=== PATIENT | female | born 1980 | race Caucasian/White ===

== ENCOUNTER → 2017-06-19 16:52 | Outpatient (CLI) | payer OTHER, SELFPAY ==
--- NOTE | 2017-06-19 11:30 | COLBX_PTH ---
PATIENT: EVELYN ATKINSON [facility] U#:[id number] AGE/SX: 44/F ROOM: RE06/19/[address]: Dr. Andrew Sosa MD : 1980 BED: DIS: SPEC #: [id number] RECD: 06/19/17 16:15 STATUS: JOON REJI #: [id number] SHAKIRA: 06/19/17 11:[address]: Andrew Sosa DEPT: SURGICAL PATHOLOGY RECD BY: [place] ENTERED: 06/20/17 08:15 SP TYPE: COLON BX OTHR DR: Dr. Manohar Mcrae MD [facility] Tissues: COLON BIOPSY Procedures: Surgery Specimen Level IV HEADER OPERATION: Colonoscopy with biopsy PRE-OP DIAGNOSIS: Abdomen pain TISSUE SUBMITTED: Right and left colon biopsy, rule out microscopic colitis MICROSCOPIC DIAGNOSIS Right and left colon, biopsy: No significant pathologic change. No evidence of colitis. AM:kamilla 06/21/17 MICROSCOPIC DESCRIPTION Slides are reviewed. GROSS DESCRIPTION Received in fixative is one container labeled with the patient's name and designated right and left colon. The specimen consists of multiple irregular fragments of light orosco soft tissue that in aggregate measure 2 x 0.6 x 0.1 cm. The specimen is totally submitted in one cassette. / AM:kamilla 06/20/17 TC:5 CPT: 09970
== END ==
PROVIDERS: Family Provider Family Medicine; PCP Family Medicine; Visit Provider Internal Medicine Gastroenterology
DX: R10.9 Unspecified abdominal pain (principal)
CPT/HCPCS: 88305

== ENCOUNTER → 2017-08-25 12:41 | Outpatient (CLI) | payer OTHER, SELFPAY ==
[2017-08-25 14:53] LABS: Anion Gap 9 (5-15); BUN 12 mg/dL (7-18); BUN/Creat Ratio 17.9 RATIO (10-20); Calcium,Total 8.9 mg/dL (8.5-10.1); Chloride 105 mmol/L (98-107); Creatinine, Serum 0.67 mg/dL (0.55-1.02); EST Glomerular Filtration Rate 105 mL/min (>60); Est Glom Filt Rate - Afr Amer 127 mL/min (>60); Glucose 61 mg/dL (74-106); Potassium 3.8 mmol/L (3.5-5.1); Sodium Level 142 mmol/L (136-145)
== END ==
PROVIDERS: Family Provider Family Medicine; PCP Family Medicine; Visit Provider Nurse Practitioner Family
DX: R00.2 Palpitations (principal); I10 Essential (primary) hypertension; R00.0 Tachycardia, unspecified
CPT/HCPCS: 36415; 80048

== ENCOUNTER → 2017-09-11 10:21 | Outpatient (CLI) | payer OTHER, SELFPAY ==
[2017-09-15 12:07] LABS: Metanephrine, Ur 33 ug/L (Undefined); Normetanephrines, Ur 72 ug/L (Undefined)
[2017-09-15 13:22] LABS: Metanephrines, 24Ur 116 ug/24 hr (45-290); Normetanephrines, 24Ur 252 ug/24 hr (82-500)
== END ==
PROVIDERS: Family Provider Family Medicine; PCP Family Medicine; Visit Provider Family Medicine
DX: R00.0 Tachycardia, unspecified (principal)
CPT/HCPCS: 81050; 83835

== ENCOUNTER → 2017-09-11 15:54 | Outpatient (CLI) | payer OTHER, SELFPAY | PROVIDERS: Visit Provider Obstetrics & Gynecology | DX: N39.0 Urinary tract infection, site not specified (principal) | CPT/HCPCS: 87086; 87088 ==

== ENCOUNTER 2017-10-03 16:33 | Emergency (ER) | payer OTHER, SELFPAY ==
[2017-10-03 16:34] VITALS: BP 124/86; PULSE 71; RESP 18; TEMP 36.9; O2SAT 98; BMI 36.4
--- NOTE | 2017-10-03 16:56 | RAD_ITS ---
STUDY: X-RAY CHEST REASON FOR EXAM: Female, 37 years old. Chest pain. TECHNIQUE: Single AP portable view of the chest. COMPARISON: February 06, 2017. FINDINGS: Telemetry wires overlie the chest. The lungs are clear and expanded. There is no demonstrated pleural abnormality. Normal size heart. Normal mediastinum and marsha. Normal visualized pulmonary arteries. Normal visualized aortic arch and descending thoracic aorta. Normal visualized thoracic spine. Normal visualized ribs, clavicles, and shoulders. There is no demonstrated abnormality of the visualized soft tissue structures of the upper abdomen. RAD/Chest 1 View (Portable) IMPRESSION: Normal x-ray examination of the chest. There is no interval change. Electronically Signed: Nacho Crowe DO at 17:39 EDT Tel [phone], Service support ,
--- NOTE | 2017-10-03 16:56 | EKG12_ITS ---
Test Reason : CP Blood Pressure : / mmHG Vent. Rate : 063 BPM Atrial Rate : 063 BPM P-R Int : 158 ms QRS Dur : 074 ms QT Int : 392 ms P-R-T Axes : 000 143 136 degrees QTc Int : 401 ms Suspect arm lead reversal, interpretation assumes no reversal Normal sinus rhythm Lateral infarct , age undetermined Abnormal ECG Confirmed by ELMER HOOPER ([id number]), graphics editor RENAN AUGUSTIN ([id number]) on 10/16/2017 5:52:50 PM Referred By: VIVIANA/CAYETANO Confirmed By:ELMER HOOPER
[2017-10-03 17:07] LABS: Absolute Neutrophil Count 3.9 X10^3/uL (2.0-7.7); Basophil# 0.01 X10^3/uL; Basophil% 0.2 % (0-1); Eosinophil# 0.08 X10^3/uL; Eosinophils% 1.3 % (0-5); Hematocrit 39.2 % (37-47); Hemoglobin 13.1 g/dl (12.0-15.0); Lymphocyte % 29.7 % (19-41); Mean Corp Hgb Conc 33.4 g/gl (32-36); Mean Corpuscular Hgb 28.7 pg (27.0-32.0); Monocyte# 0.51 X10^3/uL; Neutrophil # 3.88 X10^3/uL (2.7-7.7); Neutrophil % 60.6 % (47-70); POSITIVE COUNT NO; POSITIVE DIFFERENTIAL NO; POSITIVE MORPHOLOGY NO; Platelet Count 380 K/mm3 (150-450); RBC Distribution Width CV 12.4 % (11.6-14.6); RBC Distribution Width SD 39.5 fl (35.1-43.9); Red Blood Count 4.56 M/mm3 (4.2-5.4); White Blood Count 6.4 K/mm3 (4.4-11.0)
[2017-10-03 17:20] VITALS: O2SAT 98
[2017-10-03 17:24] LABS: Anion Gap 7 (5-15); BUN 16 mg/dL (7-18); BUN/Creat Ratio 23.9 RATIO (10-20); Calcium,Total 9.4 mg/dL (8.5-10.1); Chloride 106 mmol/L (98-107); Creatinine, Serum 0.67 mg/dL (0.55-1.02); EST Glomerular Filtration Rate 105 mL/min (>60); Est Glom Filt Rate - Afr Amer 127 mL/min (>60); Estimated Creatinine Clearance 103.45 ml/min; Glucose 91 mg/dL (74-106); Sodium Level 140 mmol/L (136-145)
--- NOTE | 2017-10-03 18:04 | EKG12_ITS ---
Test Reason : REPEAT Blood Pressure : / mmHG Vent. Rate : 057 BPM Atrial Rate : 057 BPM P-R Int : 170 ms QRS Dur : 080 ms QT Int : 426 ms P-R-T Axes : 041 043 053 degrees QTc Int : 414 ms Sinus bradycardia Otherwise normal ECG Confirmed by ELMER HOOPER ([id number]), supervising editor news reel RENAN AUGUSTIN ([id number]) on 10/16/2017 5:53:24 PM Referred By: CAYETANO Confirmed By:ELMER HOOPER
[2017-10-03 18:44] VITALS: BP 130/78; PULSE 53; RESP 16; O2SAT 98
--- NOTE | 2017-10-03 19:05 | ED.VISSUMM ---
- ER Visit Summary Date of Service: 10/03/17 Chief Complaint: Chest pain History of Present Illness: The patient is a [address] Arizmendi, Dr. Nash Mcrae, and Dr. Potter. She reports that she has a history of pots. States that approximately 1 month ago she began having more frequent symptoms. She was seen in outlying ER and had an unremarkable workup. She was seen by Dr. Arizmendi and instructed to start taking her propranolol again. She reports that she did this for 2 weeks and was not having any symptoms anymore so she stopped taking it. Worse over the course the past 4 days she is having 1-2 episodes a day where she has chest pain, shortness of breath, and feels very lightheaded. She states that these are usually while she is sitting still. They are not related to exertion. They do not seem to be postural. States that the pain is a sharp pain in 7-10 at worst and 2 out of 10 currently. States that this comes on lasts minutes at a time. Physical Examination: Vitals: Stable. Afebrile. General: Well-nourished and well-developed. Head: Normocephalic atraumatic. Neck: Supple, no lymphadenopathy. No JVD. Nontender. Cardiovascular: Regular rate and rhythm. No murmurs. Respiratory: No respiratory distress. Clear to auscultation bilaterally. Abdominal: Soft, nontender, nondistended, normal bowel sounds. No guarding, rebound, or peritoneal signs. Back: Nontender. Extremities: Nontender, no edema. Skin: Normal color, no rash. Neurologic: Alert and oriented ?3. Cranial nerves II through XII are intact. Normal strength and sensation. Psych: Normal affect. Test Results: EKG is sinus at 63. Initial EKG shows T-wave inversions in leads I and aVL at the list suspect limb lead reversal. This was repeated and these are normal and her EKG is unchanged from February last year. Troponins negative. Chem-7 is normal. CBC is normal. Chest x-ray is normal. Emergency Department Course and Treatment: Patient's resting comfortably without complaint. Treatment Plan: Patient was discussed with Dr. Manning. She is instructed to restart her propranolol. Call Dr. Arizmendi and find out if she is supposed to have an event or a Holter monitor and further instructions on follow-up. Return to the emergency department for any worsening symptoms. Disposition: To home in improved and stable condition. Impression: 1. Atypical chest pain. 2. MEAGAN score of 0. 3. History of POTS. This note was generated with [employer] dictation software. It may contain incorrect words, spelling, and punctuation that were not noted in review of the chart prior to signing ED Disposition - Plan for ED Patient: Disposition: Home or Assisted Living Chief Complaint: Shortness of Breath Instructions: ED Chest Pain Atypical Unkn Cause Referrals: Carroll Arizmendi MD [STAFF PHYSICIAN] - As soon as possible Additional Instructions: speak with Dr. Arizmendi's office about the type of monitor (event vs holter). In the meantime begin taking your propranolol again.
[2017-10-03 19:10] VITALS: O2SAT 96
[2017-10-03 19:27] VITALS: BP 129/80; PULSE 64; RESP 13; O2SAT 97
== END 2017-10-03 19:28 | disposition home or self-care (01) ==
LOC: ED 18:23
PROVIDERS: Emergency Provider Emergency Medicine; Family Provider Family Medicine; PCP Family Medicine
DX: R07.89 Other chest pain (principal); Z86.79 Personal history of other diseases of the circulatory system; R06.00 Dyspnea, unspecified; R11.0 Nausea; R51 Headache; R42 Dizziness and giddiness; Z91.14 Patient's other noncompliance with medication regimen
CPT/HCPCS: 71045; 80048; 84484; 85025; 93005; 99284; A4216

== ENCOUNTER → 2017-10-04 17:56 | Outpatient (CLI) | payer OTHER, SELFPAY ==
--- NOTE | 2017-10-04 17:59 | US_ITS ---
STUDY: ULTRASOUND TRANSVAGINAL CLINICAL: Female, 37 years old. Dysmenorrhea and dyspareunia TECHNIQUE: Transvaginal and transabdominal COMPARISON: April 21, 2017 FINDINGS: Normal uterine size measuring 8.7 x 6.8 x 5.1 cm in maximal craniocaudal dimension. There are 3 fibroids measuring 4.6 x 3.8 x 3.4 cm, 1.7 x 1.1 x 1.1 cm and 1 x 0.9 x 0.6 cm. Normal endometrial thickness measuring 8 mm. There are no endometrial masses, and there is no fluid in the endometrial cavity. Normal uterine cervix. Normal right ovary, measuring 4.4 x 2.6 x 1.6 cm. There are multiple follicles without a dominant cyst measuring 1.6 x 1 x 0.9 cm Normal left ovary, measuring 4.2 x 2 x 1.9 cm. There are multiple follicles without a dominant cyst. There is no free fluid in the pelvis. Right ovarian cyst has decreased in size since prior exam US/Pelvic (Non ) IMPRESSION: Multiple intrauterine fibroids. Small right ovarian cyst which has decreased in size since prior study Electronically Signed: Cosmo Haro MD at 23:24 EDT , Service support ,
--- NOTE | 2017-10-04 18:23 | US_ITS ---
STUDY: ULTRASOUND TRANSVAGINAL CLINICAL: Female, 37 years old. Dysmenorrhea and dyspareunia TECHNIQUE: Transvaginal and transabdominal COMPARISON: April 21, 2017 FINDINGS: Normal uterine size measuring 8.7 x 6.8 x 5.1 cm in maximal craniocaudal dimension. There are 3 fibroids measuring 4.6 x 3.8 x 3.4 cm, 1.7 x 1.1 x 1.1 cm and 1 x 0.9 x 0.6 cm. Normal endometrial thickness measuring 8 mm. There are no endometrial masses, and there is no fluid in the endometrial cavity. Normal uterine cervix. Normal right ovary, measuring 4.4 x 2.6 x 1.6 cm. There are multiple follicles without a dominant cyst measuring 1.6 x 1 x 0.9 cm Normal left ovary, measuring 4.2 x 2 x 1.9 cm. There are multiple follicles without a dominant cyst. There is no free fluid in the pelvis. Right ovarian cyst has decreased in size since prior exam US/Transvaginal Non- IMPRESSION: Multiple intrauterine fibroids. Small right ovarian cyst which has decreased in size since prior study Electronically Signed: Cosmo Haro MD at 23:24 EDT , Service support ,
== END ==
PROVIDERS: Family Provider Family Medicine; PCP Family Medicine; Visit Provider Obstetrics & Gynecology
DX: N94.6 Dysmenorrhea, unspecified (principal)
CPT/HCPCS: 76830; 76856; 93976

== ENCOUNTER → 2017-10-05 13:55 | Outpatient (CLI) | payer OTHER, SELFPAY | PROVIDERS: Family Provider Family Medicine; PCP Family Medicine; Visit Provider Internal Medicine Cardiovascular Disease | DX: R00.2 Palpitations (principal); R00.0 Tachycardia, unspecified; R06.02 Shortness of breath; I10 Essential (primary) hypertension | CPT/HCPCS: 93225; 93226 ==

== ENCOUNTER → 2017-10-05 14:18 | Outpatient (CLI) | payer OTHER, SELFPAY ==
[2017-10-05 14:57] LABS: Absolute Lymphocyte Count 1.87 X10^3/ul (0.83-4.51); Absolute Neutrophil Count 3.5 X10^3/uL (2.0-7.7); Basophil# 0.02 X10^3/uL; Basophil% 0.3 % (0-1); Eosinophil# 0.17 X10^3/uL; Eosinophils% 2.7 % (0-5); Hematocrit 39.1 % (37-47); Hemoglobin 13.1 g/dl (12.0-15.0); Lymphocyte # 1.87 X10^3/ul (4.0); Mean Corp Hgb Conc 33.5 g/gl (32-36); Mean Corpuscular Hgb 28.9 pg (27.0-32.0); Mean Corpuscular Volume 86.3 fL (81-99); Mean Platelet Vol. 9.3 fl (6.2-12.0); Monocyte# 0.64 X10^3/uL; Monocyte% 10.3 % (0-10); Neutrophil # 3.52 X10^3/uL (2.7-7.7); Neutrophil % 56.5 % (47-70); Platelet Count 400 K/mm3 (150-450); RBC Distribution Width CV 12.3 % (11.6-14.6); Red Blood Count 4.53 M/mm3 (4.2-5.4); White Blood Count 6.2 K/mm3 (4.4-11.0)
[2017-10-05 15:01] LABS: POSITIVE COUNT NO; POSITIVE DIFFERENTIAL NO; POSITIVE MORPHOLOGY NO
[2017-10-05 15:33] LABS: Anion Gap 8 (5-15); BUN 18 mg/dL (7-18); BUN/Creat Ratio 17.5 RATIO (10-20); Calcium,Total 9.2 mg/dL (8.5-10.1); Chloride 105 mmol/L (98-107); Creatinine, Serum 1.03 mg/dL (0.55-1.02); EST Glomerular Filtration Rate 64 mL/min (>60); Est Glom Filt Rate - Afr Amer 78 mL/min (>60); Glucose 78 mg/dL (74-106); Magnesium 2.1 mg/dL (1.6-2.6); Sodium Level 141 mmol/L (136-145); T4 Free Direct 1.12 ng/dL (0.76-1.46)
== END ==
PROVIDERS: Physician Assistant Medical; Family Provider Family Medicine; PCP Family Medicine; Visit Provider Internal Medicine Cardiovascular Disease
DX: R00.2 Palpitations (principal); I10 Essential (primary) hypertension; R06.02 Shortness of breath
CPT/HCPCS: 36415; 80048; 83735; 84439; 84443; 85025

== ENCOUNTER 2017-11-02 08:07 | Emergency (ER) | payer OTHER, SELFPAY ==
[2017-11-02 08:09] VITALS: BP 139/86; PULSE 87; RESP 16; TEMP 36.4; O2SAT 100; BMI 34.9
[2017-11-02 08:51] LABS: Bacteria 0 SEEN /hpf (None Seen); Mucous, Urine 0 SEEN /hpf (<or=2+); Red Blood Cells-Urine 0 SEEN /hpf (0-5); White Blood Cells 0 SEEN /hpf (0-5)
--- NOTE | 2017-11-02 08:53 | ED.VISSUMM ---
- ER Visit Summary Date of Service: 11/02/17 Chief Complaint: Chinedu tingling, syncope History of Present Illness: The patient is a 37 F presents with headache, numbness and tingling in her extremities and a syncopal episode last night. She has a history of pots, she has had the symptoms in the past. In the past few months she has had these symptoms more often right after her menstrual cycle. No fever or chills. No head injury. Her was close by and witnessed a rapid full recovery. She started hydrochlorothiazide when she started getting numbness tingling and a headache after menstrual cycle. He has no vision changes. Her numbness is in all extremities, she has no weakness. Physical Examination: Not appear in acute distress. Slightly dry mucous membranes, no obvious facial deformity No C-spine tenderness supple neck. Does have some left paraspinal tenderness. Regular rate and rhythm without any obvious murmurs Clear lungs bilaterally speaking in full sentences without any obvious respiratory distress Abdomen soft and nontender no guarding or rebound Moves all extremities without any difficulty or pain. Skin does not show any obvious rashes or lesions, no trauma. Alert oriented ?3 with no gross focal deficit Emergency Department Course and Treatment: Has had these chronic and recurrent symptoms. She has a history of pots with syncope, her workup was unremarkable. After fluids she felt better. After headache medications her headache improves. She is now significantly improved, she follows up with Dr. Celeste and Dr. Arizmendi. I told her to see them in the next week. If her symptoms worsen or she has another episode she needs to return. Otherwise I told her to be cautious. She will play the same cautions as in the past. Disposition: Discharged stable condition Impression: Syncope secondary to pots This note was generated with [employer] dictation software. It may contain incorrect words, spelling, and punctuation that were not noted in review of the chart prior to signing ED Disposition - Plan for ED Patient: Disposition: Home or Assisted Living Chief Complaint: Numb/Ting Diagnosis: Orthostasis Instructions: ED Headache Migraine Referrals: Manohar Mcrae MD [Primary Care Provider] - 2 Days
[2017-11-02] MEDS: Metoclopramide 10 MG/2 ML Vial IV (08:54)
[2017-11-02] MEDS: DiphenhydrAMINE 50 MG/ML Syringe 25 MG IV (08:54)
[2017-11-02] MEDS: 0.9% Normal Saline 1,000 ML 1000 ML IV (08:54)
[2017-11-02 08:56] LABS: Color, Urine Straw (Yellow); Glucose, Dipstick Normal (Normal); Ketone-Dipstick Negative (Negative); Leukocyte Esterase-Dipstick Negative /ul (Negative); Nitrite-Dipstick Negative (Negative); Occult Blood-Urine Negative /ul (Negative); Protein-Dipstick Negative (Negative); Specific Gravity, Urine 1.005 (1.002-1.030); Urine Bilirubin Dipstick Negative (Negative); Urine Clarity Clear (Clear); Urine Urobilinogen Normal (Normal)
[2017-11-02 09:04] LABS: Squamous Epithelial Cells - UA 0-5 SEEN /hpf (5-10)
[2017-11-02 09:15] LABS: Absolute Lymphocyte Count 1.38 X10^3/ul (0.83-4.51); Absolute Neutrophil Count 2.6 X10^3/uL (2.0-7.7); Basophil# 0.01 X10^3/uL; Basophil% 0.2 % (0-1); Eosinophil# 0.14 X10^3/uL; Eosinophils% 3.1 % (0-5); Hematocrit 40.2 % (37-47); Hemoglobin 13.2 g/dl (12.0-15.0); Lymphocyte # 1.38 X10^3/ul (4.0); Lymphocyte % 30.8 % (19-41); Mean Corp Hgb Conc 32.8 g/gl (32-36); Mean Corpuscular Volume 85.4 fL (81-99); Mean Platelet Vol. 8.9 fl (6.2-12.0); Monocyte# 0.37 X10^3/uL; Monocyte% 8.3 % (0-10); Neutrophil # 2.57 X10^3/uL (2.7-7.7); Neutrophil % 57.4 % (47-70); Platelet Count 331 K/mm3 (150-450); RBC Distribution Width CV 12.3 % (11.6-14.6); RBC Distribution Width SD 38.1 fl (35.1-43.9); Red Blood Count 4.71 M/mm3 (4.2-5.4); White Blood Count 4.5 K/mm3 (4.4-11.0)
[2017-11-02 09:23] LABS: POSITIVE COUNT NO; POSITIVE DIFFERENTIAL NO; POSITIVE MORPHOLOGY NO
[2017-11-02 09:37] LABS: AST(SGOT) 11 U/L (15-37); Alanine Aminotransfer ALT/SGPT 30 U/L (13-56); Albumin, Serum 3.8 g/dL (3.2-5.0); Alkaline Phosphatase 59 U/L (45-117); Anion Gap 7 (5-15); BUN 12 mg/dL (7-18); Chloride 107 mmol/L (98-107); Creatinine, Serum 0.71 mg/dL (0.55-1.02); EST Glomerular Filtration Rate 99 mL/min (>60); Est Glom Filt Rate - Afr Amer 120 mL/min (>60); Estimated Creatinine Clearance 97.62 ml/min; Globulin 3.9 g/dL (2.2-4.2); Glucose 88 mg/dL (74-106); Potassium 3.6 mmol/L (3.5-5.1); Protein, Total 7.7 g/dL (6.4-8.2); Sodium Level 143 mmol/L (136-145)
--- NOTE | 2017-11-02 09:55 | ED.RN ---
pt c/o anxious feeling after administration of benadryl and reglan. refused toradol. informed dr grant, he ordered ativan. pt refused. states she doesnt feel that anxious anymore but still feels crappy
[2017-11-02 10:33] VITALS: BP 130/66; PULSE 74; RESP 17; O2SAT 98
== END 2017-11-02 10:40 | disposition home or self-care (01) ==
PROVIDERS: Emergency Provider Emergency Medicine; Family Provider Family Medicine; PCP Family Medicine
DX: R55 Syncope and collapse (principal); G43.909 Migraine, unspecified, not intractable, without status migrainosus
CPT/HCPCS: 80053; 81001; 85025; 99284; J7030; A4216

== ENCOUNTER 2017-11-06 09:29 | Emergency (ER) | payer OTHER, SELFPAY ==
[2017-11-06 09:31] VITALS: BP 144/90; PULSE 80; RESP 17; TEMP 37.5; O2SAT 97; BMI 34.9
--- NOTE | 2017-11-06 09:47 | EKG12_ITS ---
Test Reason : DYSRHYTHMIA Blood Pressure : / mmHG Vent. Rate : 076 BPM Atrial Rate : 076 BPM P-R Int : 160 ms QRS Dur : 076 ms QT Int : 384 ms P-R-T Axes : 028 049 052 degrees QTc Int : 432 ms Normal sinus rhythm Normal ECG Confirmed by JOHANNA MATOS, PREETHI ([id number]), metropolitan editor RENAN AUGUSTIN ([id number]) on 11/09/2017 2:49:04 PM Referred By: LILIYA Confirmed By:PREETHI SPENCER MD
[2017-11-06 10:04] LABS: Basophil# 0.01 X10^3/uL; Basophil% 0.1 % (0-1); Eosinophil# 0.02 X10^3/uL; Eosinophils% 0.2 % (0-5); Hematocrit 41.4 % (37-47); Hemoglobin 13.7 g/dl (12.0-15.0); Lymphocyte % 13.2 % (19-41); Mean Corp Hgb Conc 33.1 g/gl (32-36); Mean Corpuscular Hgb 28.1 pg (27.0-32.0); Monocyte# 0.55 X10^3/uL; Monocyte% 5.6 % (0-10); Neutrophil # 7.95 X10^3/uL (2.7-7.7); Neutrophil % 80.8 % (47-70); Platelet Count 337 K/mm3 (150-450); RBC Distribution Width CV 12.5 % (11.6-14.6); RBC Distribution Width SD 38.5 fl (35.1-43.9); Red Blood Count 4.87 M/mm3 (4.2-5.4); White Blood Count 9.8 K/mm3 (4.4-11.0)
[2017-11-06 10:05] LABS: POSITIVE COUNT NO; POSITIVE DIFFERENTIAL NO; POSITIVE MORPHOLOGY NO
[2017-11-06 10:16] LABS: D-Dimer Quantitative (DVT/PE) < 0.27 FEU/ug/m (0.27-0.49)
[2017-11-06] MEDS: LORazepam 2 MG/ML Syringe 1 MG IV (10:18)
[2017-11-06] MEDS: 0.9% Normal Saline 1,000 ML 1000 ML IV (10:18)
[2017-11-06 10:29] LABS: Pregnancy, Serum, hCG Quali. NEGATIVE Negative (0-9 Nonpreg)
[2017-11-06 10:32] LABS: Anion Gap 7 (5-15); BUN 9 mg/dL (7-18); BUN/Creat Ratio 14.1 RATIO (10-20); Calcium,Total 9.2 mg/dL (8.5-10.1); Chloride 107 mmol/L (98-107); Creatinine, Serum 0.64 mg/dL (0.55-1.02); EST Glomerular Filtration Rate 111 mL/min (>60); Est Glom Filt Rate - Afr Amer 134 mL/min (>60); Glucose 105 mg/dL (74-106); Potassium 3.6 mmol/L (3.5-5.1); Sodium Level 141 mmol/L (136-145); Thyroid Stim Hormone (TSH) 0.78 uIU/mL (0.358-3.74)
[2017-11-06 10:35] VITALS: BP 134/80; BP 135/92; BP 137/83; PULSE 77; PULSE 81; PULSE 82
[2017-11-06 10:49] LABS: Bacteria 0 SEEN /hpf (None Seen); Mucous, Urine 0 SEEN /hpf (<or=2+); Red Blood Cells-Urine 0 SEEN /hpf (0-5); White Blood Cells 0 SEEN /hpf (0-5)
[2017-11-06 10:51] LABS: Color, Urine Straw (Yellow); Glucose, Dipstick Normal (Normal); Ketone-Dipstick Negative (Negative); Leukocyte Esterase-Dipstick Negative /ul (Negative); Nitrite-Dipstick Negative (Negative); Occult Blood-Urine Negative /ul (Negative); Protein-Dipstick Negative (Negative); Urine Bilirubin Dipstick Negative (Negative); Urine Clarity Clear (Clear); Urine Urobilinogen Normal (Normal)
[2017-11-06 10:57] LABS: Squamous Epithelial Cells - UA 0-5 SEEN /hpf (5-10)
--- NOTE | 2017-11-06 11:15 | ED.DCSUM_ITS ---
- ER Visit Summary Date of Service: 11/06/17 Chief Complaint: [Anxiety] History of Present Illness: The patient is a 37 F [presents the emergency department with complaint of anxiety over the last 2 months. Patient states that around the time that she ovulates for several days she has been having a lot of odd symptoms including bradycardia and hypertension. Patient states that her symptoms typically resolve after a few days. Patient describes adrenaline rushes and a hard time falling asleep and staying asleep at night. Patient called the counseling center today and was told to come to the emergency department to get evaluated. Patient tells me she had low-grade fevers about 2 or 3 weeks ago but no etiology was found for that. Patient tells me that her symptoms are worse at night. Patient has been taking Valium but it helps her fall asleep for about an hour and she wakes up and her symptoms are back. Patient also gives history of a progesterone cream that she has been using which she has recently discontinued. Patient's not sure if the cream was causing her symptoms. Patient does have a history of asthma, anxiety , pots, hypertension, GERD, scleroderma, and sleep apnea.] Physical Examination: [HEENT-PERRLA, EOMI. Cranial nerves II through XII grossly intact. TMs clear. Mucous membranes moist. No adenopathy. Cardiovascular-regular rate and rhythm without murmur or ectopy Lungs-clear to auscultation, chest wall stable without crepitus or subcu emphysema Abdomen-normoactive bowel sounds, soft, nontender, no rebound or rigidity, no peritoneal signs. Extremities-intact ?4, normal range of motion, normal pulses, atraumatic] Test Results: [EKG obtained on arrival shows sinus rhythm with a rate of 76 bpm. CBC with it was normal. Chemistries were normal. Urinalysis was normal. HCG was negative. Troponin was less than 0.015. D-dimer was normal at less than 0.27. TSH was normal at 0.78.] Emergency Department Course and Treatment: [Patient received Ativan 1 mg IV and her symptoms improved significantly.] Treatment Plan: [Patient was asking to have crisis see her in the emergency department and I will have them see her and arrange follow-up. Patient will be started on as needed Ativan.] Disposition: [Discharged home in stable condition] Impression: [Anxiety reaction] This note was generated with Dragon dictation software. It may contain incorrect words, spelling, and punctuation that were not noted in review of the chart prior to signing ED Disposition - Plan for ED Patient: Chief Complaint: Anxiety Referrals: Manohar Mcrae MD [Primary Care Provider] -
--- NOTE | 2017-11-06 11:15 | ED.DEP ---
ED Disposition - Plan for ED Patient: Chief Complaint: Anxiety Instructions: ED Stress React Prescriptions: Lorazepam [Ativan] 1 mg PO TID PRN #15 tab PRN Reason: Anxiety Referrals: Manohar Mcrae MD [Primary Care Provider] - 3-5 Days Additional Instructions: Follow up with counseling center
[2017-11-06 11:38] VITALS: BP 132/77; PULSE 78; RESP 18; O2SAT 98
--- NOTE | 2017-11-06 11:39 | ED.RN ---
trade union secretary faxing results to Dr. Macdonald. pt to keep appt today.
== END 2017-11-06 11:40 | disposition home or self-care (01) ==
PROVIDERS: Emergency Provider Emergency Medicine; Family Provider Family Medicine; PCP Family Medicine
DX: F41.9 Anxiety disorder, unspecified (principal); J45.909 Unspecified asthma, uncomplicated; I10 Essential (primary) hypertension; K21.9 Gastro-esophageal reflux disease without esophagitis
CPT/HCPCS: 80048; 81001; 84443; 84484; 84703; 85025; 85379; 93005; 99285; J7030; A4216

== ENCOUNTER → 2017-11-10 10:16 | Outpatient (REF) | payer OTHER, SELFPAY | LOC: CVS 10:16 | PROVIDERS: Family Provider Family Medicine; PCP Family Medicine; Visit Provider Internal Medicine Cardiovascular Disease | DX: R55 Syncope and collapse (principal); R00.0 Tachycardia, unspecified; R00.2 Palpitations | CPT/HCPCS: 93270 ==

== ENCOUNTER → 2019-03-30 09:01 | Outpatient (CLI) | payer OTHER, SELFPAY ==
[2019-03-21 15:01] VITALS: BMI 36.3
[2019-03-30 10:47] LABS: Hematocrit 41.6 % (37-47); Hemoglobin 13.5 g/dL (12.0-15.0); Mean Corp Hgb Conc 32.5 g/dL (32-36); Mean Corpuscular Hgb 28.6 pg (27.0-32.0); Mean Corpuscular Volume 88.1 fL (81-99); Mean Platelet Vol. 9.5 fl (6.2-12.0); Platelet Count 311 K/mm3 (150-450); RBC Distribution Width CV 12.3 % (11.6-14.6); RBC Distribution Width SD 40.1 fl (35.1-43.9); Red Blood Count 4.72 M/mm3 (4.2-5.4); White Blood Count 5.8 K/mm3 (4.4-11.0)
[2019-03-30 11:02] LABS: Erythrocyte Sedimentation Rate 17 mm/hr (0-20)
[2019-03-30 11:28] LABS: AST(SGOT) 11 U/L (15-37); Alanine Aminotransfer ALT/SGPT 26 U/L (13-56); Albumin, Serum 3.6 g/dL (3.2-5.0); Alkaline Phosphatase 58 U/L (45-117); Anion Gap 7 (5-15); BUN 14 mg/dL (7-18); BUN/Creat Ratio 22.8 RATIO (10-20); Calcium,Total 8.7 mg/dL (8.5-10.1); Chloride 108 mmol/L (98-107); Cholesterol 178 mg/dL (200); Creatinine, Serum 0.61 mg/dL (0.55-1.02); EST Glomerular Filtration Rate 116 mL/min (>60); Est Glom Filt Rate - Afr Amer 140 mL/min (>60); Globulin 3.7 g/dL (2.2-4.2); Glucose 84 mg/dL (74-106); High Density Lipoprotein 52 mg/dL; Potassium 3.9 mmol/L (3.5-5.1); Protein, Total 7.3 g/dL (6.4-8.2); Sodium Level 141 mmol/L (136-145); T4 Free Direct 0.98 ng/dL (0.76-1.46); Thyroid Stim Hormone (TSH) 0.87 uIU/mL (0.358-3.74); Triglycerides 80 mg/dL; Very Low Density Lipoprotein 16 mg/dL (5-40)
[2019-03-30 11:42] LABS: Hemoglobin A1c 5.1 % (4.2-6.3)
[2019-04-01 09:48] LABS: Vitamin D,25 Hydroxy 30.8 ng/mL (29.95-100.01)
[2019-04-01 22:37] LABS: ANTINUCLEAR ANTIBODIES DIRECT Negative (Negative)
== END ==
PROVIDERS: Family Provider Family Medicine; PCP Family Medicine; Referring Provider Family Medicine; Visit Provider Family Medicine
DX: Z00.00 Encounter for general adult medical examination without abnormal findings (principal); R53.82 Chronic fatigue, unspecified
CPT/HCPCS: 36415; 80053; 80061; 82306; 83036; 84439; 84443; 85027; 85652; 86038

== ENCOUNTER → 2019-04-11 14:55 | Outpatient (CLI) | payer OTHER, SELFPAY ==
[2019-03-21 15:01] VITALS: BMI 36.3
--- NOTE | 2019-04-11 14:57 | ECHOD_ITS ---
Reason For Study: Arrhythmia Procedure This was a 2D Doppler, Color Flow transthoracic echocardiogram. Exam performed in department. Left Ventricle Normal size and thickness. The estimated ejection fraction is 65 %. Normal diastology for age. No regional wall motion abnormalities noted. Right Ventricle Normal size and thickness. Normal systolic function. Atria Normal left atrium. Normal right atrium. Normal atrial septum. Mitral Valve The mitral valve is structurally normal. No prolapse or stenosis seen. Tricuspid Valve Normal tricuspid valve. Unable to estimate RV systolic pressure due to insufficient tricuspid regurgitant envelope. Pulmonic Valve Normal pulmonic valve. Great Vessels Normal aortic root. Normal arch. Normal inferior vena cava. Inferior vena cava collapse with sniff. Pericardium/Pleural No pericardial effusion. MMode/2D Measurements & Calculations LVIDd: 4.4 cm IVSd: 1.1 cm Ao root diam: 2.8 cm LVIDs: 2.7 cm LVPWd: 1.1 cm RVDd: 2.8 cm FS: 37.7 % LAV(MOD-bp): 36.3 ml LVAd ap4: 26.8 cm2 SV(MOD-sp4): 45.8 ml LAV(MOD-bp) Indexed: 18.2 ml/m2 EDV(MOD-sp4): 71.9 ml LAV(MOD-sp2): 49.5 ml EDV(sp4-el): 72.8 ml LAV(MOD-sp4): 25.9 ml LVAs ap4: 14.5 cm2 ESV(MOD-sp4): 26.0 ml ESV(sp4-el): 26.7 ml EF(MOD-sp4): 63.8 % EF(sp4-el): 63.3 % SV(sp4-el): 46.1 ml LA dimension(2D): 3.4 cm LA A4 area: 12.8 cm2 RA A4 area: 11.2 cm2 Doppler Measurements & Calculations MV E max sharan: 107.3 cm/sec Lat Peak E' Sharan: 11.5 cm/sec Med Peak E' Sharan: 8.3 cm/sec MV A max sharan: 86.6 cm/sec E/E' lat: 9.3 E/E' med: 12.9 MV E/A: 1.2 Ao V2 max: 153.4 cm/sec LV V1 max: 128.5 cm/sec PA V2 max: 98.1 cm/sec Ao max P.4 mmHg LV V1 max P.6 mmHg Ao V2 mean: 103.8 cm/sec Ao mean P.8 mmHg Ao V2 VTI: 31.7 cm Interpretation Summary The estimated ejection fraction is 65 %. Normal diastology for age. Unable to estimate RV systolic pressure due to insufficient tricuspid regurgitant envelope. Compared to echo report dated 02/27/2014, no appreciable changes noted. Ordering Physician: Carroll Arizmendi Referring Physician: Manohar Mcrae Performed By: Catarina Amato RDCS, RVT
== END ==
PROVIDERS: Family Provider Family Medicine; PCP Family Medicine; Referring Provider Internal Medicine Cardiovascular Disease; Visit Provider Internal Medicine Cardiovascular Disease
DX: R00.0 Tachycardia, unspecified (principal); I95.1 Orthostatic hypotension; R07.89 Other chest pain; G47.33 Obstructive sleep apnea (adult) (pediatric); Z99.89 Dependence on other enabling machines and devices; I10 Essential (primary) hypertension; R00.2 Palpitations
CPT/HCPCS: 93306

== ENCOUNTER → 2020-03-23 10:04 | Outpatient (CLI) | payer OTHER, SELFPAY ==
[2020-02-05 11:48] VITALS: BMI 39.9
[2020-03-23 11:06] LABS: Hematocrit 43.2 % (37-47); Hemoglobin 13.7 g/dL (12.0-15.0); Mean Corp Hgb Conc 31.7 g/dL (32-36); Mean Corpuscular Hgb 28.5 pg (27.0-32.0); Mean Platelet Vol. 9.3 fl (6.2-12.0); Platelet Count 363 K/mm3 (150-450); RBC Distribution Width CV 12.5 % (11.6-14.6); RBC Distribution Width SD 41.1 fl (35.1-43.9); White Blood Count 6.6 K/mm3 (4.4-11.0)
[2020-03-23 11:28] LABS: ALB/GLOB Ratio 0.9 RATIO (0.9-2.4); AST(SGOT) 14 U/L (15-37); Alanine Aminotransfer ALT/SGPT 40 U/L (13-56); Albumin, Serum 3.5 g/dL (3.2-5.0); Alkaline Phosphatase 70 U/L (45-117); Anion Gap 4 (5-15); BUN 14 mg/dL (7-18); BUN/Creat Ratio 19.5 RATIO (10-20); Calcium,Total 8.7 mg/dL (8.5-10.1); Chloride 107 mmol/L (98-107); Cholesterol 177 mg/dL (200); Creatinine, Serum 0.72 mg/dL (0.55-1.02); EST Glomerular Filtration Rate 96 mL/min (>60); Est Glom Filt Rate - Afr Amer 116 mL/min (>60); Globulin 3.8 g/dL (2.2-4.2); Glucose 95 mg/dL (74-106); High Density Lipoprotein 47 mg/dL; Protein, Total 7.3 g/dL (6.4-8.2); Sodium Level 139 mmol/L (136-145); Triglycerides 131 mg/dL; Very Low Density Lipoprotein 26 mg/dL (5-40)
[2020-03-23 11:45] LABS: Hemoglobin A1c 5.1 % (3.8-5.6)
== END ==
PROVIDERS: PCP Family Medicine; Visit Provider Family Medicine
DX: Z00.00 Encounter for general adult medical examination without abnormal findings (principal); R53.82 Chronic fatigue, unspecified; G90.1 Familial dysautonomia [Riley-Day]; G47.33 Obstructive sleep apnea (adult) (pediatric); I10 Essential (primary) hypertension
CPT/HCPCS: 36415; 80053; 80061; 83036; 85027

== ENCOUNTER → 2020-06-24 16:51 | Outpatient (CLI) | payer OTHER, SELFPAY ==
[2020-06-24 14:11] VITALS: BMI 42.5
[2020-06-29 12:57] LABS: HPV APTIMA, High Risk Negative (Negative)
== END ==
PROVIDERS: PCP Family Medicine; Referring Provider Nurse Practitioner Women's Health; Visit Provider Nurse Practitioner Women's Health
DX: Z12.4 Encounter for screening for malignant neoplasm of cervix (principal)
CPT/HCPCS: 87624; 88175; G0145

== ENCOUNTER → 2020-08-17 12:35 | Outpatient (CLI) | payer OTHER, SELFPAY ==
[2020-06-24 14:11] VITALS: BMI 42.5
--- NOTE | 2020-08-17 12:42 | BI_ITS ---
MAMMOGRAPHY - BILATERAL SCREENING REASON FOR EXAM: Female, 39 years old. Routine annual screening examination. PERTINENT HISTORY: Mother with breast cancer. Aunt with breast cancer. TECHNIQUE: Digital bilateral breast love (3D mammographic acquisition) in the CC and MLO projections. 2-D mediolateral oblique (MLO) and craniocaudad (CC) views of both breasts were obtained. CAD: Full Field Digital Mammography with Computer Added Detection was performed. COMPARISON: Comparison is made with prior study dated 01/27/2017. FINDINGS: Breast Composition: There are scattered areas of fibroglandular density. There is a 1.2 cm x 1.1 cm well-defined nodule in the slightly upper lateral aspect of the left breast anteriorly. Correlation with ultrasound is recommended. No other significant abnormalities are identified. BI/SCRN MAMM (CAD)W/LOVE BILAT IMPRESSION: There is a new 1.2 cm x 1.1 cm well-defined nodule in the slightly upper lateral aspect of the left breast anteriorly. Correlation with ultrasound is recommended. ASSESSMENT CATEGORY: BIRADS Category 0: Incomplete. Need additional imaging evaluation. A letter regarding these results will be sent to the patient by the facility within 30 days. Approximately 10% of breast cancers are not detected by mammography. A normal mammogram should not delay biopsy of a clinically suspicious abnormality. [id number] Electronically Signed: Raymundo Trinh MD at 14:33 EDT , Service support ,
--- NOTE | 2020-08-17 12:42 | US_ITS ---
STUDY: ULTRASOUND OF THE FEMALE PELVIS - COMPLETE REASON FOR EXAM: Female, 39 years old. bleeding LMP: 08/08/2020 TECHNIQUE: Transabdominal and Transvaginal TECHNICAL QUALITY: Adequate. COMPARISON: 10/04/2017 FINDINGS: The uterus is anteverted and is in a midline position. The uterus measures 9.5 x 6.2 x 6.1 cm. Normal uterine cervix. The endometrium measures 3 mm in thickness, and is hyperechoic. There is no demonstrated endometrial mass. 4.5 cm slightly hyperechoic mass within the posterior body the uterus consistent with an intramural fibroid. Another 1.6 cm slightly hypoechoic mass in the posterior body uterus consistent with a submucosal fibroid. 2.5 cm slightly hypoechoic mass within the fundus the uterus consistent with another intramural fibroid. I.U.D. - The patient does not have an I.U.D. The right ovary is visualized. The right ovary measures 5.0 x 5.3 x 3.4 cm. 3.5 cm anechoic mass of the right ovary consistent with a cortical cyst. There is no visualized right adnexal mass or complex lesion. There is normal arterial and normal venous vascularity. The left ovary is visualized. The left ovary measures 3.9 x 2.7 x 2.2 cm. There is no left ovarian cyst or ovarian mass. There is no visualized left adnexal mass or complex lesion. There is normal arterial and normal venous vascularity. There is no fluid in the cul-de-sac. The pre void volume of the bladder was ml. The post void volume of the bladder was ml. Polycystic ovary disease: No. US/Transvaginal Non- IMPRESSION: 1. No change in the enlarged fibroid uterus. 2. 3.5 cm corpus luteum cyst of the right ovary. Electronically Signed: David Marina MD at 9:05 EDT Tel , Service support ,
--- NOTE | 2020-08-17 12:42 | US_ITS ---
STUDY: ULTRASOUND OF THE FEMALE PELVIS - COMPLETE REASON FOR EXAM: Female, 39 years old. bleeding LMP: 08/08/2020 TECHNIQUE: Transabdominal and Transvaginal TECHNICAL QUALITY: Adequate. COMPARISON: 10/04/2017 FINDINGS: The uterus is anteverted and is in a midline position. The uterus measures 9.5 x 6.2 x 6.1 cm. Normal uterine cervix. The endometrium measures 3 mm in thickness, and is hyperechoic. There is no demonstrated endometrial mass. 4.5 cm slightly hyperechoic mass within the posterior body the uterus consistent with an intramural fibroid. Another 1.6 cm slightly hypoechoic mass in the posterior body uterus consistent with a submucosal fibroid. 2.5 cm slightly hypoechoic mass within the fundus the uterus consistent with another intramural fibroid. I.U.D. - The patient does not have an I.U.D. The right ovary is visualized. The right ovary measures 5.0 x 5.3 x 3.4 cm. 3.5 cm anechoic mass of the right ovary consistent with a cortical cyst. There is no visualized right adnexal mass or complex lesion. There is normal arterial and normal venous vascularity. The left ovary is visualized. The left ovary measures 3.9 x 2.7 x 2.2 cm. There is no left ovarian cyst or ovarian mass. There is no visualized left adnexal mass or complex lesion. There is normal arterial and normal venous vascularity. There is no fluid in the cul-de-sac. The pre void volume of the bladder was ml. The post void volume of the bladder was ml. Polycystic ovary disease: No. US/Pelvic (Non ) IMPRESSION: 1. No change in the enlarged fibroid uterus. 2. 3.5 cm corpus luteum cyst of the right ovary. Electronically Signed: David Marina MD at 9:05 EDT Tel , Service support ,
== END ==
PROVIDERS: PCP Family Medicine; Referring Provider Nurse Practitioner Women's Health; Visit Provider Nurse Practitioner Women's Health
DX: Z12.31 Encounter for screening mammogram for malignant neoplasm of breast (principal); D25.9 Leiomyoma of uterus, unspecified; N92.0 Excessive and frequent menstruation with regular cycle
CPT/HCPCS: 76830; 76856; 77063; 77067

== ENCOUNTER → 2020-08-19 14:23 | Outpatient (CLI) | payer OTHER, SELFPAY ==
[2020-06-24 14:11] VITALS: BMI 42.5
--- NOTE | 2020-08-19 14:25 | US_ITS ---
STUDY: ULTRASOUND BREAST - LEFT REASON FOR EXAM: Female, 39 years old. Abnormal screening mammogram. TECHNIQUE: Axial and longitudinal images of the LEFT breast were performed with a high resolution ultrasound transducer. # OF IMAGES: 16 COMPARISON: Comparison is made with prior mammogram dated 08/17/2020 and prior ultrasound of the left breast dated 01/30/2017. FINDINGS: LEFT Breast: Stable 6 mm x 8 mm x 3 mm well-defined hypoechoic nodule at the 3 o''clock position of the breast at 2 cm from nipple. A fatty hilum is seen. This is suggestive of a small benign appearing lymph node. Mild degree of dilated retroareolar ducts. US/Breast Limited Unilateral IMPRESSION: Stable examination. ASSESSMENT CATEGORY: BIRADS Category 2: Benign. A letter regarding these results will be sent to the patient by the facility within 30 days. Electronically Signed: Raymundo Trinh MD at 15:52 EDT , Service support ,
== END ==
PROVIDERS: PCP Family Medicine; Referring Provider Nurse Practitioner Women's Health; Visit Provider Nurse Practitioner Women's Health
DX: R92.8 Other abnormal and inconclusive findings on diagnostic imaging of breast (principal)
CPT/HCPCS: 76642

== ENCOUNTER → 2021-03-13 09:25 | Outpatient (CLI) | payer OTHER, SELFPAY ==
[2021-03-13 10:31] LABS: Hematocrit 40.8 % (37-47); Hemoglobin 13.3 g/dL (12.0-15.0); Mean Corp Hgb Conc 32.6 g/dL (32-36); Mean Corpuscular Hgb 28.3 pg (27.0-32.0); Mean Corpuscular Volume 86.8 fL (81-99); Platelet Count 372 K/mm3 (150-450); RBC Distribution Width CV 12.9 % (11.6-14.6); White Blood Count 7.9 K/mm3 (4.4-11.0)
[2021-03-13 10:57] LABS: Hemoglobin A1c 5.2 % (3.8-5.6)
[2021-03-13 11:03] LABS: ALB/GLOB Ratio 0.8 RATIO (0.9-2.4); AST(SGOT) 18 U/L (15-37); Alanine Aminotransfer ALT/SGPT 39 U/L (13-56); Albumin, Serum 3.3 g/dL (3.2-5.0); Alkaline Phosphatase 69 U/L (45-117); Anion Gap 5 (5-15); BUN 10 mg/dL (7-18); BUN/Creat Ratio 14.8 RATIO (10-20); Calcium,Total 8.9 mg/dL (8.5-10.1); Chloride 104 mmol/L (98-107); Cholesterol 179 mg/dL (200); Creatinine, Serum 0.68 mg/dL (0.55-1.02); EST Glomerular Filtration Rate 103 mL/min (>60); Est Glom Filt Rate - Afr Amer 124 mL/min (>60); Globulin 4.1 g/dL (2.2-4.2); Glucose 96 mg/dL (74-106); High Density Lipoprotein 46 mg/dL; Potassium 4.1 mmol/L (3.5-5.1); Protein, Total 7.4 g/dL (6.4-8.2); Sodium Level 139 mmol/L (136-145); Thyroid Stim Hormone (TSH) 1.34 uIU/mL (0.358-3.74); Triglycerides 157 mg/dL; Very Low Density Lipoprotein 31 mg/dL (5-40)
[2021-03-15 09:03] LABS: Vitamin D,25 Hydroxy 47.1 ng/mL
== END ==
PROVIDERS: PCP Family Medicine; Visit Provider Family Medicine
DX: Z00.00 Encounter for general adult medical examination without abnormal findings (principal)
CPT/HCPCS: 36415; 80053; 80061; 82306; 83036; 84443; 85027

== ENCOUNTER → 2021-09-10 | Outpatient (CLI) | payer OTHER, SELFPAY ==
--- NOTE | 2021-09-10 08:41 | BI_ITS ---
MAMMOGRAPHY - BILATERAL SCREENING REASON FOR EXAM: Female, 41 years old. Routine annual screening examination. PERTINENT HISTORY: Mother with breast cancer. Aunt with breast cancer. TECHNIQUE: Digital bilateral breast love (3D mammographic acquisition) in the CC and MLO projections. 2-D mediolateral oblique (MLO) and craniocaudad (CC) views of both breasts were obtained. CAD: Full Field Digital Mammography with Computer Added Detection was performed. COMPARISON: Comparison is made with prior study dated 08/17/2020 and 01/27/2017. FINDINGS: Breast Composition: There are scattered areas of fibroglandular density. There are no dominant masses or suspicious calcifications. Stable 1 cm fat-containing nodule in the deep mid lateral aspect of the left breast. This also evidence of a similar appearing nodular density measuring 1 cm in the anterior aspect of the right breast suggestive of a small lymph node. No other significant abnormalities are identified. There has been no significant change since the prior study. BI/SCRN MAMM (CAD)W/LOVE BILAT IMPRESSION: Stable bilateral screening mammogram. Yearly follow-up mammogram recommended. (A) ASSESSMENT CATEGORY: BIRADS Category 2: Benign. A letter regarding these results will be sent to the patient by the facility within 30 days. Approximately 10% of breast cancers are not detected by mammography. A normal mammogram should not delay biopsy of a clinically suspicious abnormality. [id number] Electronically Signed: Raymundo Trinh MD at 9:51 EDT ,
== END | disposition home or self-care (01) ==
LOC: OPBI 08:40
PROVIDERS: PCP Family Medicine; Referring Provider Nurse Practitioner Women's Health; Visit Provider Nurse Practitioner Women's Health
DX: Z12.31 Encounter for screening mammogram for malignant neoplasm of breast (principal); Z80.3 Family history of malignant neoplasm of breast
CPT/HCPCS: 77063; 77067

== ENCOUNTER → 2022-03-12 | Outpatient (CLI) | payer OTHER, SELFPAY ==
[2022-03-12 09:24] LABS: Hematocrit 38.9 % (37-47); Hemoglobin 12.8 g/dL (12.0-15.0); Mean Corp Hgb Conc 32.9 g/dL (32-36); Mean Corpuscular Hgb 28.6 pg (27.0-32.0); Mean Platelet Vol. 8.8 fl (6.2-12.0); Platelet Count 342 K/mm3 (150-450); RBC Distribution Width CV 12.9 % (11.6-14.6); RBC Distribution Width SD 40.7 fl (35.1-43.9); Red Blood Count 4.47 M/mm3 (4.2-5.4); White Blood Count 6.1 K/mm3 (4.4-11.0)
[2022-03-12 09:56] LABS: Hemoglobin A1c 5.3 % (3.8-5.6)
[2022-03-12 10:11] LABS: ALB/GLOB Ratio 0.9 RATIO (0.9-2.4); AST(SGOT) 12 U/L (15-37); Alanine Aminotransfer ALT/SGPT 30 U/L (13-56); Albumin, Serum 3.4 g/dL (3.2-5.0); Alkaline Phosphatase 62 U/L (45-117); Anion Gap 5 (5-15); BUN 12 mg/dL (7-18); BUN/Creat Ratio 18.5 RATIO (10-20); Calcium,Total 9.1 mg/dL (8.5-10.1); Chloride 107 mmol/L (98-107); Cholesterol 189 mg/dL (200); Creatinine, Serum 0.65 mg/dL (0.55-1.02); EST Glomerular Filtration Rate 107 mL/min (>60); Est Glom Filt Rate - Afr Amer 129 mL/min (>60); Globulin 3.9 g/dL (2.2-4.2); Glucose 99 mg/dL (74-106); High Density Lipoprotein 45 mg/dL; Protein, Total 7.3 g/dL (6.4-8.2); Sodium Level 139 mmol/L (136-145); Triglycerides 143 mg/dL; Very Low Density Lipoprotein 29 mg/dL (5-40)
== END | disposition home or self-care (01) ==
LOC: LAB 08:47
PROVIDERS: PCP Family Medicine; Referring Provider Family Medicine; Visit Provider Family Medicine
DX: Z00.00 Encounter for general adult medical examination without abnormal findings (principal)
CPT/HCPCS: 36415; 80053; 80061; 83036; 85027

== ENCOUNTER → 2022-07-19 | Outpatient (CLI) | payer OTHER, SELFPAY ==
[2022-07-19 12:14] LABS: Hematocrit 41.3 % (37-47); Hemoglobin 13.3 g/dL (12.0-15.0); Mean Corp Hgb Conc 32.2 g/dL (32-36); Mean Corpuscular Hgb 28.4 pg (27.0-32.0); Mean Corpuscular Volume 88.2 fL (81-99); Mean Platelet Vol. 9.1 fl (6.2-12.0); Platelet Count 388 K/mm3 (150-450); RBC Distribution Width CV 12.7 % (11.6-14.6); RBC Distribution Width SD 40.5 fl (35.1-43.9); Red Blood Count 4.68 M/mm3 (4.2-5.4); White Blood Count 8.4 K/mm3 (4.4-11.0)
[2022-07-19 12:40] LABS: Vitamin D,25 Hydroxy 34.8 ng/mL
[2022-07-19 12:53] LABS: ALB/GLOB Ratio 0.9 RATIO (0.9-2.4); AST(SGOT) 16 U/L (15-37); Alanine Aminotransfer ALT/SGPT 31 U/L (13-56); Albumin, Serum 3.5 g/dL (3.2-5.0); Alkaline Phosphatase 64 U/L (45-117); Anion Gap 5 (5-15); BUN 10 mg/dL (7-18); BUN/Creat Ratio 15.9 RATIO (10-20); Calcium,Total 9.3 mg/dL (8.5-10.1); Chloride 106 mmol/L (98-107); Creatinine, Serum 0.63 mg/dL (0.55-1.02); EST Glomerular Filtration Rate 110 mL/min (>60); Est Glom Filt Rate - Afr Amer 134 mL/min (>60); Globulin 3.8 g/dL (2.2-4.2); Glucose 93 mg/dL (74-106); Magnesium 2.3 mg/dL (1.6-2.6); Potassium 4.3 mmol/L (3.5-5.1); Protein, Total 7.3 g/dL (6.4-8.2); Sodium Level 138 mmol/L (136-145); T4 Free Direct 1.09 ng/dL (0.76-1.46)
== END | disposition home or self-care (01) ==
LOC: LAB 11:52
PROVIDERS: PCP Family Medicine
DX: R53.83 Other fatigue (principal)
CPT/HCPCS: 36415; 80053; 82306; 83735; 84439; 84443; 85027

== ENCOUNTER → 2022-09-12 | Outpatient (CLI) | payer OTHER, SELFPAY ==
--- NOTE | 2022-09-12 13:35 | BI_ITS ---
MAMMOGRAPHY - BILATERAL SCREENING REASON FOR EXAM: Female, 42 years old. Routine annual screening examination. PERTINENT HISTORY: Mother with breast cancer. Aunt with breast cancer. TECHNIQUE: Digital bilateral breast love (3D mammographic acquisition) in the CC and MLO projections. 2-D mediolateral oblique (MLO) and craniocaudad (CC) views of both breasts were obtained. CAD: Full Field Digital Mammography with Computer Added Detection was performed. COMPARISON: Comparison is made with prior examination dated September 10, 2021 and August 17, 2020. FINDINGS: Breast Composition: There are scattered areas of fibroglandular density. There are no dominant masses or suspicious calcifications. Stable 1 cm well-defined fat-containing nodule in the deep mid lateral aspect of the left breast. Stable 1 cm nodule in the anterior aspect of the right breast small lymph node. No other significant abnormalities are identified. There has been no significant change since the prior study. BI/SCRN MAMM (CAD)W/LOVE BILAT IMPRESSION: Stable bilateral screening mammogram. Yearly follow-up mammogram recommended. (A) ASSESSMENT CATEGORY: BIRADS Category 2: Benign. A letter regarding these results will be sent to the patient by the facility within 30 days. Approximately 10% of breast cancers are not detected by mammography. A normal mammogram should not delay biopsy of a clinically suspicious abnormality. [id number] Electronically Signed: Raymundo Trinh MD at 14:34 EDT ,
== END | disposition home or self-care (01) ==
LOC: OPBI 13:34
PROVIDERS: PCP Family Medicine; Referring Provider Nurse Practitioner Women's Health; Visit Provider Nurse Practitioner Women's Health
DX: Z12.31 Encounter for screening mammogram for malignant neoplasm of breast (principal); Z80.3 Family history of malignant neoplasm of breast
CPT/HCPCS: 77063; 77067

== ENCOUNTER → 2022-09-30 | Outpatient (CLI) | payer OTHER, SELFPAY ==
--- NOTE | 2022-09-30 16:15 | US_ITS ---
STUDY: ULTRASOUND OF THE FEMALE PELVIS - COMPLETE REASON FOR EXAM: Female, 42 years old. bleeding. Patient with known fibroids LMP: 09/04/2022 TECHNIQUE: Transabdominal and Transvaginal TECHNICAL QUALITY: Adequate. COMPARISON: CT scan 05/17/2016, previous ultrasound 08/17/2020. FINDINGS: The uterus is anteverted and is in a midline position. The uterus measures 11.3 x 3.9 x 3.4 cm. Normal uterine cervix. The endometrium measures 9 mm in thickness, and is hyperechoic. There is no demonstrated endometrial mass. Multiple uterine fibroids are seen. The largest measure 2.2, 3.0, and 5.3 cm greatest dimensions. The right ovary is visualized. The right ovary measures 5.9 x 3.6 x 2.6 cm. There is a 3.4 cm cyst. There is no visualized right adnexal mass or complex lesion. There is normal arterial and normal venous vascularity. The left ovary is visualized. The left ovary measures 4.3 x 3.2 x 2.3 cm. There is a 1.8 cm cyst. There is no visualized left adnexal mass or complex lesion. There is normal arterial and normal venous vascularity. There is no fluid in the cul-de-sac. The pre void volume of the bladder was 239 ml. Polycystic ovary disease: No. US/Pelvic w/ Transvaginal IMPRESSION: Diffuse fibroid uterus, worse than prior study. Uterus is significantly larger in size as are multiple uterine fibroids. Electronically Signed: Elder Celaya MD at 20:07 EDT ,
== END | disposition home or self-care (01) ==
LOC: US 16:15
PROVIDERS: PCP Family Medicine; Referring Provider Nurse Practitioner Women's Health; Visit Provider Nurse Practitioner Women's Health
DX: N92.0 Excessive and frequent menstruation with regular cycle (principal); D25.9 Leiomyoma of uterus, unspecified; Z87.42 Personal history of other diseases of the female genital tract
CPT/HCPCS: 76830; 76856

== ENCOUNTER → 2023-01-16 | Outpatient (CLI) | payer OTHER, SELFPAY ==
[2023-01-16 11:34] LABS: Hematocrit 41.3 % (37-47); Hemoglobin 13.1 g/dL (12.0-15.0); Mean Corp Hgb Conc 31.7 g/dL (32-36); Mean Corpuscular Hgb 28.4 pg (27.0-32.0); Mean Corpuscular Volume 89.6 fL (81-99); Mean Platelet Vol. 9.1 fl (6.2-12.0); Platelet Count 355 K/mm3 (150-450); RBC Distribution Width CV 12.9 % (11.6-14.6); RBC Distribution Width SD 42.2 fl (35.1-43.9); Red Blood Count 4.61 M/mm3 (4.2-5.4); White Blood Count 7.8 K/mm3 (4.4-11.0)
[2023-01-16 11:36] LABS: Erythrocyte Sedimentation Rate 18 mm/hr (0-30)
[2023-01-16 11:59] LABS: Vitamin D,25 Hydroxy 32.3 ng/mL
[2023-01-16 12:05] LABS: ALB/GLOB Ratio 0.8 RATIO (0.9-2.4); AST(SGOT) 14 U/L (15-37); Alanine Aminotransfer ALT/SGPT 31 U/L (13-56); Albumin, Serum 3.3 g/dL (3.2-5.0); Alkaline Phosphatase 66 U/L (45-117); Anion Gap 6 (5-15); BUN 11 mg/dL (7-18); BUN/Creat Ratio 17.7 RATIO (10-20); Chloride 104 mmol/L (98-107); Cholesterol 181 mg/dL (200); Creatinine, Serum 0.62 mg/dL (0.55-1.02); EST Glomerular Filtration Rate 111 mL/min (>60); Est Glom Filt Rate - Afr Amer 135 mL/min (>60); Ferritin 30 ng/mL (8-252); Globulin 3.9 g/dL (2.2-4.2); Glucose 87 mg/dL (74-106); High Density Lipoprotein 40 mg/dL; Magnesium 2.3 mg/dL (1.6-2.6); Potassium 3.9 mmol/L (3.5-5.1); Protein, Total 7.2 g/dL (6.4-8.2); Sodium Level 137 mmol/L (136-145); T4 Free Direct 0.95 ng/dL (0.76-1.46); Thyroid Stim Hormone (TSH) 1.16 uIU/mL (0.358-3.74); Triglycerides 186 mg/dL; Very Low Density Lipoprotein 37 mg/dL (5-40)
== END | disposition home or self-care (01) ==
LOC: LAB 10:06
PROVIDERS: PCP Family Medicine; Referring Provider Family Medicine; Visit Provider Family Medicine
DX: Z00.00 Encounter for general adult medical examination without abnormal findings (principal); G90.1 Familial dysautonomia [Riley-Day]; G47.33 Obstructive sleep apnea (adult) (pediatric); M54.10 Radiculopathy, site unspecified; L94.0 Localized scleroderma [morphea]
CPT/HCPCS: 36415; 80053; 80061; 82306; 82728; 83036; 83735; 84439; 84443; 85027; 85652; 86140

== ENCOUNTER → 2023-05-17 | Outpatient (CLI) | payer OTHER, SELFPAY ==
[2023-05-17 15:25] LABS: Homocysteine 4.2 umol/L (3.2-10.7)
[2023-05-17 15:58] LABS: Insulin 103.9 mU/L (2.6-37.6)
[2023-05-17 16:15] LABS: Hemoglobin A1c 5.1 % (3.8-5.6)
[2023-05-17 16:34] LABS: ALB/GLOB Ratio 0.9 RATIO (0.9-2.4); AST(SGOT) 15 U/L (15-37); Alanine Aminotransfer ALT/SGPT 25 U/L (13-56); Albumin, Serum 3.6 g/dL (3.2-5.0); Alkaline Phosphatase 71 U/L (45-117); Amylase 46 U/L (25-115); Anion Gap 7 (5-15); BUN 13 mg/dL (7-18); BUN/Creat Ratio 19.6 RATIO (10-20); Chloride 109 mmol/L (98-107); Creatinine, Serum 0.66 mg/dL (0.55-1.02); EST Glomerular Filtration Rate 103 mL/min (>60); Est Glom Filt Rate - Afr Amer 125 mL/min (>60); Globulin 4.1 g/dL (2.2-4.2); Glucose 101 mg/dL (74-106); Lipase 44 U/L (13-75); Potassium 3.9 mmol/L (3.5-5.1); Protein, Total 7.7 g/dL (6.4-8.2); Sodium Level 141 mmol/L (136-145)
[2023-05-19 14:09] LABS: C-Peptide 8.9 ng/mL (1.1-4.4)
== END | disposition home or self-care (01) ==
LOC: LAB 14:34
PROVIDERS: PCP Family Medicine; Referring Provider Family Medicine; Visit Provider Family Medicine
DX: I10 Essential (primary) hypertension (principal); G90.1 Familial dysautonomia [Riley-Day]; R73.01 Impaired fasting glucose; R07.9 Chest pain, unspecified
CPT/HCPCS: 36415; 80053; 82150; 83036; 83090; 83525; 83690; 84681

== ENCOUNTER → 2023-05-19 | Outpatient (CLI) | payer OTHER, SELFPAY ==
--- OUTSIDE RECORDS SUMMARY | 2023-05-19 11:04 | XMS RPT_ITS | CCD ---
Author Name Unknown Address [address] [place] [address] Organization [facility] Care Team Providers Care Trouble Locater Name Role Phone Roof COMPRESSED GAS TESTER, Feroz Escobar Unavailable CHELSEA ADAME MD Primary Care Physician CHELSEA ADAME MD Primary Care Unavailable RAFI MI, FANNY Coombs Attending Unavailab SHERYL Knox MD Attending Unavailable CHELSEA ADAME MD Primary Care Unavailable Allergies Allergy Classification Reported Allergen(s) Allergy Type Date of Onset Reaction(s) Facility (3 sources) Amoxicillin / Clavulanate Drug Allergy 6 hives [facility] Work Phone: [phone] (4 sources) Ciprofloxacin; Translations: [Ciprofloxacin] Drug Allergy 4 [facility] Work Phone: [phone] (4 sources) moxifloxacin; Translations: [moxifloxacin] Drug Allergy 4 [facility] Work Phone: [phone] (3 sources) Penicillins (Antibiotic) drug allergy 5 hives [facility] Work Phone: [phone] (3 sources) shellfish, unspecified; Translations: [SHELLFISH] food allergy 4 diarrhea, facial edema and redness [facility] Work Phone: [phone] (3 sources) Sulfamethoxazole / Trimethoprim Drug Allergy 4 [facility] Work Phone: [phone] (1 source) Clarithromycin; Translations: [clarithromycin] Drug Allergy [facility] Work Phone: (1 source) Penicillin; Translations: [penicillins] Drug Allergy [facility] Work Phone: (1 source) predniSONE; Translations: [prednisone] Drug Allergy [facility] Work Phone: Medications Current Medications Medication Drug Class(es) Dates Sig (Normalized) Sig (Original) crisaborole 0.02 mg/mg topical ointment (1 source) Start: 03-01-2021 Eucrisa 2% topical ointment Apply 1 briseyda, Topical, BID, wash hands thoroughly after application, # 60 gram(s), 5 Refill(s), [facility]acy: [facility], Ointment, 165.7, cm, 03/01/21 11:22:00 EDT, Height, 117.3, kg, 03/01/21 11:22:00 EDT, Dosing Weight Start Date: 03/01/21 Status: Ordered cyclobenzaprine hydrochloride 5 mg oral tablet (1 source) Muscle Relaxant Start: 09-27-2021 End: 10-04-2021 cyclobenzaprine 5 mg oral tablet Dose : 5 mg = 1 tab(s), Oral, TID, X 7 day(s), # 21 tab(s), 0 Refill(s), 10/04/21 15:32:00 EDT, [facility]acy: [facility], 165.6, cm, 09/27/21 15:02:00 EDT, Height Start Date: 09/27/21 Stop Date: 10/04/21 Status: Ordered escitalopram 20 mg oral tablet (7 sources) Serotonin Reuptake Inhibitor Start: 04-20-2021 escitalopram 20 mg oral tablet Dose : 20 mg = 1 tab(s), Oral, qDay, # 90 tab(s), 3 Refill(s), [facility]acy: [facility], 165.7, cm, 03/01/21 11:22:00 EDT, Height, kg, 03/01/21 11:22:00 EDT, Dosing Weight Start Date: 12/14/21 Status: Ordered Completed/Discontinued Medications Medication Drug Class(es) Dates Sig (Normalized) Sig (Original) cholecalciferol 400 unt oral tablet (6 sources) Vitamin D Start: 02-28-2014 End: 04-05-2016 VITAMIN D 400 UNIT TABS One tablet emma angel CHOLECALCIFEROL [id number] Jenna Metcalf lansoprazole 15 mg delayed release oral capsule (6 sources) Proton Pump Inhibitor Start: 02-28-2014 End: 03-17-2014 take 1 tablet by mouth once daily PREVACID 15 MG CPDR One tablet by mouth daily LANSOPRAZOLE [id number] Rosette M Esequiel loratadine 10 mg oral capsule (6 sources) Start: 02-28-2014 End: 03-17-2014 take 1 tablet by mouth once daily CLARITIN 10 MG CAPS One tablet by mouth daily LORATADINE [id number] Carroll Arizmendi MD montelukast 10 mg oral tablet (6 sources) Leukotriene Receptor Antagonist Start: 02-28-2014 End: 03-17-2014 take 1 tablet by mouth once daily SINGULAIR 10 MG TABS One tablet by mouth daily MONTELUKAST SODIUM [id number] Rosette Iraheta MULTIPLE VITAMINS-MINERALS (6 sources) Start: 02-28-2014 End: 04-05-2016 take 1 tablet by mouth once daily CENTRUM TABS One tablet by mouth daily MULTIPLE VITAMINS-MINERALS [id number] Jenna Metcalf Problems Active Problems Problem Classification Problem Date Documented Da te Episodic/Chronic Allergic reactions (1 source) Eczema 08-04-2021 Episodic Anxiety disorders (1 source) Anxiety 01-05-2014 Chronic Cardiac dysrhythmias (3 sources) Sinus tachycardia; Translations: [Tachycardia, unspecified] Onset: 03-17-2014 03-17-2014 Chronic Conditions associated with dizziness or vertigo (1 source) Meniere's disease 11-23-2018 Chronic Essential hypertension (4 sources) Hypertensive disorder; Translations: [Essential (primary) hypertension] Onset: 02-28-2014 02-28-2014 Chronic Malaise and fatigue (1 source) Chronic fatigue syndrome 01-05-2014 Chronic Nonspecific chest pain (4 sources) Chest pain, unspecified; Translations: [Chest pain] Onset: 02-28-2014 02-28-2014 Episodic Other nervous system disorders (1 source) Disorder of autonomic nervous system 11-23-2018 Chronic Other nutritional; endocrine; and metabolic disorders (3 sources) Body mass index (BMI) 37.0-37.9, adult; Translations: [Body mass index (BMI) 37.0-37.9, adult] Onset: 02-09-2017 02-09-2017 Chronic Other skin disorders (1 source) Morphea 08-04-2021 Chronic Spondylosis; intervertebral disc disorders; other back problems (1 source) Radicular pain 09-27-2021 Episodic Unclassified (1 source) Screening status 11-23-2018 Past or Other Problems Problem Classification Problem Date Documented Date Episodic/Chronic Cardiac dysrhythmias (3 sources) Palpitations; Translations: [Palpitations] Onset: 02-28-2014 02-28-2014 Episodic Other circulatory disease (3 sources) Orthostatic hypotension; Translations: [Orthostatic hypotension] Onset: 03-17-2014 03-17-2014 Episodic Other screening for suspected conditions (not mental disorders or infectious disease) (6 sources) Abnormal result of cardiovascular function study, unspecified; Translations: [Abnormal result of cardiovascular function study, unspecified] Onset: 02-28-2014 Resolved: 02-08-2017 02-08-2017 Episodic Residual codes; unclassified (3 sources) FH: Hypertension; Translations: [Family history of ischemic heart disease and other diseases of the circulatory system] 03-17-2014 Episodic Results Test Name Value Interpretation Reference Range Facil ity Vital Signs Date Time Vital Sign Value Performing Clinician Sussy chau 02-09-2017 08:21-0400 BMI (Body Mass Index) 37.27 kg/m2 [facility] Work Phone: 02-09-2017 08:21-0400 BP Diastolic 80 mm[Hg] Feroz Amato NP [facility] Work Phone: 02-09-2017 08:21-0400 BP Systolic 120 mm[Hg] Feroz Amato NP [facility] Work Phone: 02-09-2017 08:21-0400 Height 165.1 cm Feroz Amato NP [facility] Work Phone: 02-09-2017 08:21-0400 Pulse (Heart Rate) 64 /min Feroz Amato COMPRESSED GAS TESTER [facility] Work Phone: 02-09-2017 08:21-0400 Respiratory Rate 20 /min Feroz Amato COMPRESSED GAS TESTER [facility] Work Phone: 02-09-2017 08:21-0400 Weight 101.61 kg Feroz Amato COMPRESSED GAS TESTER [facility] Work Phone: 03-30-2015 15:27-0500 BSA (Body Surface Area) 2.17 m2 Feroz Amato COMPRESSED GAS TESTER [facility] Work Phone: Encounters Encounter Date Encounter Type Care Provider Facility Start: 05-14-2023 End: 05-14-2023 Emergency department patient visit SHERYL SERNA MD Facility:A Start: 04-17-2023 End: 04-17-2023 Emergency department patient visit CHELSEA ADAME MD Facility:A Start: 09-28-2021 End: 09-28-2021 Patient encounter procedure NICKI DIAZ CATALYST OPERATOR-PROCEDURES ANALYST [facility] Procedures Date Procedure Procedure Detail Performing Clinician Start: 04-05-2016 End: 04-05-2016 RITESH Arizmendi MD Work Phone: Start: 04-05-2016 End: 04-05-2016 Follow Up Appt 1 year Willie Walker Work Phone: Start: 03-30-2015 End: 03-30-2015 RITESH Arizmendi MD Work Phone: Start: 03-30-2015 End: 03-30-2015 Follow Up Appt 1 year Willie Walker Work Phone: Start: 03-17-2014 End: 03-17-2014 Dietary management education, guidance, and counseling Feroz Amato NP Start: 03-17-2014 End: 03-17-2014 RITESH Arizmendi MD Work Phone: Start: 03-17-2014 End: 03-17-2014 Follow Up Appt 1 year Willie Walker Work Phone: Start: 03-17-2014 End: 03-17-2014 Follow Up BP Check Carroll Arizmendi MD Work Phone: Cholecystectomy NICKI TODD ON CATALYST OPERATOR-PROCEDURES ANALYST Tonsillectomy and adenoidectomy NICKI DIAZ CATALYST OPERATOR-PROCEDURES ANALYST Plan of Treatment Date Care Activity Detail Author Start: 05-11-2017 End: 05-11-2017 Appointment Appointment [facility] Work Phone: Start: 02-09-2017 End: 02-09-2017 Appointment Appointment [facility] Work Phone: Start: 04-05-2016 End: 04-05-2016 DJN DJN [facility] Work Phone: Start: 04-05-2016 End: 04-05-2016 Follow Up Appt 1 year Follow Up Appt 1 year [facility] Work Phone: Start: 03-30-2015 End: 03-30-2015 DJN DJN [facility] Work Phone: Start: 03-30-2015 End: 03-30-2015 Follow Up Appt 1 year Follow Up Appt 1 year [facility] Work Phone: Start: 03-17-2014 End: 03-17-2014 DJN DJN [facility] Work Phone: Start: 03-17-2014 End: 03-17-2014 Follow Up Appt 1 year Follow Up Appt 1 year [facility] Work Phone: Start: 03-17-2014 End: 03-17-2014 Follow Up BP Check Follow Up BP Check [facility] Work Phone: Payers Date Payer Category Payer Unknown [id number] 1980 Unknown [id number] 1980 Unknown [id number] Social History Date Type Detail Facility Start: 03-29-2019 Tobacco smoking status Ex-smoker (fi nding) [facility] Sex Assigned At Female [facility] Evaluation + Plan note 09-27-2021 Radiology Note Date & Type Note Facility 09-27-2021 Evaluation + Plan note Future Scheduled TestsXR Sacrum/Coccyx Minimum 2 Views 09/27/21XR Spine Lumbar W/Obliques 4 Views 09/27/21 [facility] Hospital course Narrative Note Date & Type Note Facility Hospital course Narrative No data available for this section [facility] Hospital Discharge instructions Note Date & Type Note Facility Hospital Discharge instructions No data available for this section [facility] Progress note Note Date & Type [facility] No data available for this section [facility] Summary Purpose Family History No Family History Records Found Advance Directives No Advanced Directives Records Found Additional Source Comments Care Team (unrecognized sect ion and content) Personnel Name: CHELSEA ADAME MD Address: [address] [place] [address] INFORMATION SOURCE (unrecogn ized section and content) FOR RECORDS PERTAINING TO PATIENTS WHO ARE OR HAVE BEEN ENROLLED IN A CHEMICAL DEPENDENCY/SUBSTANCEABUSE PROGRAM, SOME INFORMATION MAY BE OMITTED. This clinical summary was aggregated from multiple sources. Caution should be exercised in using it in the provision of clinical care. This summary normalizes information from multiple sources, and as a consequence, information in this document may materially change the coding, format and clinical context of patient data. In addition, data may be omitted in some cases. CLINICAL DECISIONS SHOULD BE BASED ON THE PRIMARY CLINICAL RECORDS. [facility] [employer] [facility] provides no warranty or guarantee of the accuracy or completeness of information in this document.
[2023-05-23 19:08] LABS: VMA, 24UR 5.1 mg/24 hr (0.0-7.5)
== END | disposition home or self-care (01) ==
LOC: LAB.FUTURE 10:30 → LAB 10:33
PROVIDERS: PCP Family Medicine; Referring Provider Family Medicine; Visit Provider Family Medicine
DX: I10 Essential (primary) hypertension (principal); G90.1 Familial dysautonomia [Riley-Day]; R73.01 Impaired fasting glucose; R07.9 Chest pain, unspecified
CPT/HCPCS: 81050; 84585

== ENCOUNTER → 2023-07-10 | Outpatient (CLI) | payer OTHER, SELFPAY ==
[2023-07-10 10:12] LABS: Absolute Lymphocyte Count 1.81 X10^3/uL (0.83-4.51); Absolute Neutrophil Count 4.5 X10^3/uL (2.0-7.7); Basophil# 0.05 X10^3/uL; Basophil% 0.7 % (0-1); Eosinophil# 0.09 X10^3/uL; Eosinophils% 1.3 % (0-5); Hematocrit 40.5 % (37-47); Lymphocyte # 1.81 X10^3/ul (0.83-4.51); Lymphocyte % 25.6 % (19-41); Mean Corp Hgb Conc 32.1 g/dL (32-36); Mean Corpuscular Hgb 28.1 pg (27.0-32.0); Mean Corpuscular Volume 87.5 fL (81-99); Mean Platelet Vol. 9.1 fl (6.2-12.0); Monocyte# 0.62 X10^3/uL; Monocyte% 8.8 % (0-10); NRBC Flagged by Analyzer 0 % (0-5); Neutrophil # 4.48 X10^3/uL (2.7-7.7); Neutrophil % 63.2 % (47-70); Platelet Count 354 K/mm3 (150-450); RBC Distribution Width CV 13.2 % (11.6-14.6); Red Blood Count 4.63 M/mm3 (4.2-5.4); White Blood Count 7.1 K/mm3 (4.4-11.0)
[2023-07-10 10:50] LABS: Anion Gap 3 (5-15); BUN 12 mg/dL (7-18); BUN/Creat Ratio 18.3 RATIO (10-20); Calcium,Total 9.6 mg/dL (8.5-10.1); Chloride 109 mmol/L (98-107); Creatinine, Serum 0.66 mg/dL (0.55-1.02); EST Glomerular Filtration Rate 105 mL/min (>60); Est Glom Filt Rate - Afr Amer 127 mL/min (>60); Glucose 96 mg/dL (74-106); Magnesium 2.1 mg/dL (1.6-2.6); Potassium 4.1 mmol/L (3.5-5.1); Sodium Level 140 mmol/L (136-145)
== END | disposition home or self-care (01) ==
LOC: LAB 09:46
PROVIDERS: PCP Family Medicine; Referring Provider Nurse Practitioner Gerontology; Visit Provider Nurse Practitioner Gerontology
DX: R00.2 Palpitations (principal); R06.09 Other forms of dyspnea
CPT/HCPCS: 36415; 80048; 83735; 83880; 84443; 85025

== ENCOUNTER → 2023-08-09 | Outpatient (CLI) | payer OTHER, SELFPAY ==
--- NOTE | 2023-08-09 13:41 | ECHOD_ITS ---
Reason For Study: DYSPNEA Procedure This was a 2D Doppler, Color Flow transthoracic echocardiogram. The study was technically difficult. Exam performed in department. Left Ventricle Normal LV size. Left ventricular systolic function is normal. The estimated ejection fraction is 65 %. No regional wall motion abnormalities noted. Right Ventricle Normal RV size. Normal systolic function. Atria Normal left atrium. Normal right atrium. Mitral Valve Normal mitral valve. Tricuspid Valve Normal tricuspid valve. Aortic Valve Trisinus/trileaflet aortic valve. Pulmonic Valve Normal pulmonic valve. Great Vessels Normal aortic root. The pulmonary artery is normal size. Inferior vena cava collapse with respiration. Pericardium/Pleural No pericardial effusion. MMode/2D Measurements & Calculations LVIDd: 4.8 cm IVSd: 1.1 cm LVOT diam: 2.0 cm LVIDs: 2.5 cm LVPWd: 0.93 cm LVOT area: 3.1 cm2 RVDd: 3.4 cm FS: 47.4 % Ao root diam: 3.1 cm LAV(MOD-bp): 40.1 ml LVAd ap4: 23.0 cm2 LAV(MOD-bp) Indexed: 18.8 ml/m2 LVLd ap4: 7.8 cm LAV(MOD-sp2): 33.4 ml EDV(MOD-sp4): 59.0 ml LAV(MOD-sp4): 46.4 ml EDV(sp4-el): 57.5 ml LVAs ap4: 12.2 cm2 LVLs ap4: 6.4 cm ESV(MOD-sp4): 21.4 ml ESV(sp4-el): 19.7 ml EF(MOD-sp4): 63.8 % EF(sp4-el): 65.8 % LVAd ap2: 23.9 cm2 SV(MOD-sp4): 37.6 ml SV(MOD-sp2): 43.4 ml LVLd ap2: 7.6 cm EDV(MOD-sp2): 64.5 ml EDV(sp2-el): 63.9 ml LVAs ap2: 12.3 cm2 LVLs ap2: 6.5 cm ESV(MOD-sp2): 21.1 ml ESV(sp2-el): 19.9 ml EF(MOD-sp2): 67.3 % SV(sp4-el): 37.9 ml LA dimension(2D): 3.5 cm LA A4 area: 16.6 cm2 RA A4 area: 14.9 cm2 TAPSE: 2.6 cm Time Measurements MV dec time: 0.20 sec Doppler Measurements & Calculations MV E max sharan: 93.2 cm/sec Lat Peak E' Sharan: 14.4 cm/sec Med Peak E' Sharan: 11.9 cm/sec MV A max sharan: 89.2 cm/sec E/E' lat: 6.5 E/E' med: 7.8 MV E/A: 1.0 Ao V2 max: 149.6 cm/sec LV V1 max: 145.0 cm/sec MV dec slope: 475.6 cm/sec2 Ao max P.9 mmHg LV V1 max P.4 mmHg Ao V2 mean: 100.4 cm/sec LV V1 mean P.4 mmHg Ao mean P.7 mmHg LV V1 mean: 99.4 cm/sec Ao V2 VTI: 31.2 cm LV V1 VTI: 28.7 cm AV (velocity ratio): 0.92 KENROY(I,D): 2.9 cm2 KENROY(V,D): 3.0 cm2 SV(LVOT): 89.5 ml PA V2 max: 114.3 cm/sec PA max PG (full): 0.88 mmHg ECHO/Echo Complete Interpretation Summary Normal LV size. Left ventricular systolic function is normal. The estimated ejection fraction is 65 %. Structurally normal valves. Ordering Physician: Fabienne Lam Referring Physician: Fabienne Lam Performed By: Cindy Mancuso RDCS
== END | disposition home or self-care (01) ==
PROVIDERS: PCP Family Medicine; Referring Provider Nurse Practitioner Gerontology; Visit Provider Nurse Practitioner Gerontology
DX: R06.09 Other forms of dyspnea (principal)
CPT/HCPCS: 93306

== ENCOUNTER → 2023-09-18 | Outpatient (CLI) | payer OTHER, SELFPAY ==
--- NOTE | 2023-09-18 13:52 | BI_ITS ---
MAMMOGRAPHY - BILATERAL SCREENING REASON FOR EXAM: Female, 43 years old. Routine annual screening examination. PERTINENT HISTORY: Mother with breast cancer. Aunt with breast cancer. TECHNIQUE: Digital bilateral breast love (3D mammographic acquisition) in the CC and MLO projections. 2-D mediolateral oblique (MLO) and craniocaudad (CC) views of both breasts were obtained. CAD: Full Field Digital Mammography with Computer Added Detection was performed. COMPARISON: Comparison is made with prior study dated September 12, 2022 and September 10, 2021. FINDINGS: Breast Composition: There are scattered areas of fibroglandular density. There are no dominant masses or suspicious calcifications. Stable bilateral fat containing axillary lymph nodes. Stable small bilateral intramammary lymph nodes. No other significant abnormalities are identified. There has been no significant change since the prior study. BI/SCRN MAMM (CAD)W/LOVE BILAT IMPRESSION: Stable bilateral screening mammogram. Yearly follow-up mammogram recommended. (A) ASSESSMENT CATEGORY: BIRADS Category 2: Benign. A letter regarding these results will be sent to the patient by the facility within 30 days. Approximately 10% of breast cancers are not detected by mammography. A normal mammogram should not delay biopsy of a clinically suspicious abnormality. [id number] Electronically Signed: Raymundo Trinh MD at 10:52 EDT ,
== END | disposition home or self-care (01) ==
LOC: OPBI 13:52
PROVIDERS: PCP Family Medicine; Referring Provider Nurse Practitioner Women's Health; Visit Provider Nurse Practitioner Women's Health
DX: Z12.31 Encounter for screening mammogram for malignant neoplasm of breast (principal); Z80.3 Family history of malignant neoplasm of breast
CPT/HCPCS: 77063; 77067

== ENCOUNTER → 2024-02-09 | Outpatient (CLI) | payer OTHER, SELFPAY ==
[2024-02-09 08:22] LABS: Hematocrit 39.4 % (37-47); Hemoglobin 12.3 g/dL (12.0-15.0); Mean Corp Hgb Conc 31.2 g/dL (32-36); Mean Corpuscular Hgb 26.5 pg (27.0-32.0); Mean Corpuscular Volume 84.7 fL (81-99); Mean Platelet Vol. 8.6 fl (6.2-12.0); Platelet Count 352 K/mm3 (150-450); RBC Distribution Width CV 13.2 % (11.6-14.6); RBC Distribution Width SD 40.5 fl (35.1-43.9); Red Blood Count 4.65 M/mm3 (4.2-5.4); White Blood Count 7.3 K/mm3 (4.4-11.0)
[2024-02-09 08:53] LABS: Hemoglobin A1c 5.2 % (3.8-5.6); Vitamin D,25 Hydroxy 26.7 ng/mL
[2024-02-09 09:13] LABS: ALB/GLOB Ratio 0.9 RATIO (0.9-2.4); AST(SGOT) 10 U/L (15-37); Alanine Aminotransfer ALT/SGPT 21 U/L (13-56); Albumin, Serum 3.4 g/dL (3.2-5.0); Alkaline Phosphatase 63 U/L (45-117); Anion Gap 5 (5-15); BUN 10 mg/dL (7-18); BUN/Creat Ratio 17.1 RATIO (10-20); Calcium,Total 8.9 mg/dL (8.5-10.1); Chloride 109 mmol/L (98-107); Cholesterol 172 mg/dL (200); Creatinine, Serum 0.58 mg/dL (0.55-1.02); EST Glomerular Filtration Rate 119 mL/min (>60); Est Glom Filt Rate - Afr Amer 145 mL/min (>60); Follicle Stimulating Hormone 10.9 mIU/mL; Free T3 2.9 pg/mL (2.18-3.98); Globulin 3.6 g/dL (2.2-4.2); Glucose 97 mg/dL (74-106); High Density Lipoprotein 50 mg/dL; Luteinizing Hormone 28.3 mIU/mL; Potassium 3.9 mmol/L (3.5-5.1); Sodium Level 139 mmol/L (136-145); T4 Free Direct 1.08 ng/dL (0.76-1.46); Triglycerides 127 mg/dL; Very Low Density Lipoprotein 25 mg/dL (5-40)
[2024-02-10 04:08] LABS: PROLACTIN 25.6 ng/mL (4.8-33.4); Thyroid Peroxidase AB < 9 IU/mL (0-34)
== END | disposition home or self-care (01) ==
PROVIDERS: PCP Family Medicine; Referring Provider Family Medicine; Visit Provider Family Medicine
DX: Z00.00 Encounter for general adult medical examination without abnormal findings (principal); G90.1 Familial dysautonomia [Riley-Day]; G47.33 Obstructive sleep apnea (adult) (pediatric); I10 Essential (primary) hypertension; K21.00 Gastro-esophageal reflux disease with esophagitis, without bleeding
CPT/HCPCS: 36415; 80053; 80061; 82306; 82533; 83001; 83002; 83036; 84146; 84403; 84439; 84443; 84481; 85027; 86376

== ENCOUNTER → 2024-09-27 | Outpatient (CLI) | payer OTHER, SELFPAY ==
--- NOTE | 2024-09-27 12:45 | BI_ITS ---
EXAM: SCRN MAMM (CAD)W/LOVE BILAT 09/27/2024 CLINICAL HISTORY: F, Age 44 y/o , SCREEN FOR BREAST CANCER TECHNIQUE: Bilateral screening digital breast tomosynthesis with 2D and 3D images. Computer aided detection. COMPARISON: Prior exam(s) dated 09/18/2023, 09/12/2022. FINDINGS: TISSUE DENSITY: The breast tissue is composed of scattered area of fibroglandular density.. Bilateral Breast Mammographic Findings: No significant masses, calcifications or other abnormalities are identified. BI/SCRN MAMM (CAD)W/LOVE BILAT IMPRESSION: Right Breast: BIRADS 1 NEGATIVE. Left Breast: BIRADS 1 NEGATIVE. OVERALL FINAL ASSESSMENT: BIRADS 1 NEGATIVE. RECOMMENDATION: Routine annual follow-up in 1 Year A letter with findings and recommendations will be mailed to the patient. Reading Location: [id number]
== END | disposition home or self-care (01) ==
LOC: OPBI 12:44
PROVIDERS: PCP Family Medicine; Referring Provider Nurse Practitioner Women's Health; Visit Provider Nurse Practitioner Women's Health
DX: Z12.31 Encounter for screening mammogram for malignant neoplasm of breast (principal)
CPT/HCPCS: 77063; 77067

== ENCOUNTER → 2024-10-14 | Outpatient (CLI) | payer OTHER, SELFPAY ==
--- NOTE | 2024-10-14 15:56 | US_ITS ---
PROCEDURE: PELVIC W/ TRANSVAGINAL REASON FOR EXAM: FIBROIDS TECHNIQUE: Transabdominal and transvaginal pelvic ultrasound COMPARISON: September 30, 2022. FINDINGS: Measurements: Uterus: 11 cm x 8.2 cm x 5.7 cm with a volume of 272.81 mL Endometrial Thickness: 4 mm Right Ovary: 7.5 cm x 6.2 cm x 5.6 cm. Left Ovary: 4.9 cm x 4 cm x 2.6 cm. TRANSABDOMINAL: Uterus: Enlarged fibroid uterus. There is a 5.5 cm x 5.2 cm 4.5 cm fibroid as well as a 2.8 cm x 2.5 cm 2.4 cm fibroid. Endometrium: Unremarkable. Right ovary: 5 cm x 4.7 cm 4.8 cm simple cyst. Left ovary: Normal size and echotexture. Other: No large pelvic mass identified. Transvaginal sonography was performed to better visualize the endometrium. TRANSVAGINAL: Uterus: Enlarged fibroid uterus as described. Endometrium: Normal echotexture. Right ovary: 5 cm x 4.7 cm 4.8 cm cyst Left ovary: Normal size and echotexture. Other adnexal findings: None. Cul-de-sac: No free intraperitoneal fluid identified. Tenderness: No tenderness US/Pelvic w/ Transvaginal IMPRESSION: Enlarged fibroid uterus. Dominant right ovarian cyst. Reading Location: [place] [id number]
== END | disposition home or self-care (01) ==
LOC: US 15:54
PROVIDERS: PCP Family Medicine; Referring Provider Nurse Practitioner Women's Health; Visit Provider Nurse Practitioner Women's Health
DX: D25.9 Leiomyoma of uterus, unspecified (principal); Z87.42 Personal history of other diseases of the female genital tract
CPT/HCPCS: 76830; 76856

== ENCOUNTER → 2024-11-14 | Outpatient (CLI) | payer OTHER, SELFPAY ==
[2024-11-15 22:07] LABS: Chlamydia By Nucleic Acid AMP Negative (Negative); Gonococcus By Nucleic Acid AMP Negative (Negative)
== END | disposition home or self-care (01) ==
LOC: LABSPEC 11:37
PROVIDERS: PCP Family Medicine; Visit Provider Nurse Practitioner Women's Health
DX: N89.8 Other specified noninflammatory disorders of vagina (principal)
CPT/HCPCS: 87070; 87077; 87205; 87491; 87591

== ENCOUNTER → 2024-11-29 | Outpatient (CLI) | payer OTHER, SELFPAY ==
--- NOTE | 2024-11-29 08:57 | US_ITS ---
PROCEDURE: PELVIC W/ TRANSVAGINAL 11/29/2024 REASON FOR EXAM: FIBROIDS TECHNIQUE: PELVIC W/ TRANSVAGINAL COMPARISON: Pelvic ultrasound 10/14/2024. FINDINGS: Uterus is anteverted and measures 10.1 x 8.1 x 6.5 cm. No abnormal collection is seen within the uterine cavity. Endometrial stripe complex appears within normal limits measuring up to 1 cm. Multiple uterine fibroids are seen. Posterior lower uterine segment intramural fibroid measures 1.7 x 1.7 x 1.6 cm. Posterior uterine body subserosal fibroid measures 2.9 x 2.7 x 2.1 cm. The largest probable intramural fibroid at the right aspect of the uterine fundus measures 4.5 x 4.2 x 3.6 cm. Left ovary measures 4.5 x 2.8 x 2.7 cm. Right ovary measures 5.1 x 3.8 x 3.8 cm. Simple appearing fluid-filled tubular structure adjacent to the left ovary, consistent with nonspecific left hydrosalpinx. Right ovary contains a complex exophytic cyst measuring 6 x 5.5 x 4.7 cm, with homogeneous internal low-level echoes consistent with hemorrhage, typical appearance for endometrioma. Blood flow is demonstrated within bilateral ovaries on color Doppler. No significant free fluid is seen within the pelvis. US/Pelvic w/ Transvaginal IMPRESSION: 1. Multiple uterine fibroids, as described above. 2. Nonspecific left-sided hydrosalpinx. 3. Right ovarian/adnexal complex hemorrhagic cyst, consistent with endometrioma . Reading Location: [id number]
== END | disposition home or self-care (01) ==
LOC: US 08:55
PROVIDERS: PCP Family Medicine; Referring Provider Nurse Practitioner Women's Health; Visit Provider Nurse Practitioner Women's Health
DX: D25.9 Leiomyoma of uterus, unspecified (principal); Z87.42 Personal history of other diseases of the female genital tract
CPT/HCPCS: 76830; 76856

== ENCOUNTER → 2024-12-11 | Outpatient (CLI) | payer OTHER, SELFPAY ==
[2024-12-11 18:36] LABS: Ferritin 25 ng/mL (22-378)
[2024-12-13 13:08] LABS: ANTINUCLEAR ANTIBODIES DIRECT Negative (Negative); Alpha Antitrypsin Serum 158 mg/dL (101-187); Anti-Smooth Muscle ABS 4 Units (0-19)
== END | disposition home or self-care (01) ==
LOC: MTLAB 14:21
PROVIDERS: PCP Family Medicine; Referring Provider Internal Medicine Gastroenterology; Visit Provider Internal Medicine Gastroenterology
DX: K75.9 Inflammatory liver disease, unspecified (principal)
CPT/HCPCS: 36415; 82103; 82728; 83516; 86038

== ENCOUNTER → 2024-12-24 | Outpatient (CLI) | payer OTHER, SELFPAY ==
[2024-12-24 10:00] LABS: Hematocrit 40.8 % (37-47); Hemoglobin 13.1 g/dL (12.0-15.0); Mean Corp Hgb Conc 32.1 g/dL (32-36); Mean Corpuscular Volume 86.8 fL (81-99); Mean Platelet Vol. 9.9 fl (6.2-12.0); Platelet Count 325 K/mm3 (150-450); RBC Distribution Width CV 13.3 % (11.6-14.6); RBC Distribution Width SD 41.8 fl (35.1-43.9); Red Blood Count 4.70 M/mm3 (4.2-5.4); White Blood Count 7.4 K/mm3 (4.4-11.0)
[2024-12-24 11:04] LABS: Ferritin 27 ng/mL (22-378); Iron 63 ug/dL (50-170); Iron Binding Capacity,Total 379 ug/dL (250-450); Iron Binding Capacity,Unsat 316 ug/dL (228-428); Vitamin B12 736 pg/mL (180-914); Vitamin D,25 Hydroxy 34.2 ng/mL (30-100)
[2024-12-25 15:08] LABS: EBV Acute VCA IgM 71.7 U/mL (0.0-35.9); EBV-VCA IgG 281.0 U/mL (0.0-17.9)
== END | disposition home or self-care (01) ==
LOC: LAB 09:20
PROVIDERS: PCP Family Medicine; Referring Provider Nurse Practitioner Family; Visit Provider Nurse Practitioner Family
DX: K76.0 Fatty (change of) liver, not elsewhere classified (principal); R53.83 Other fatigue
CPT/HCPCS: 36415; 82306; 82607; 82728; 83540; 83550; 85027; 86664; 86665

== ENCOUNTER → 2025-01-10 | Outpatient (CLI) | payer OTHER, SELFPAY ==
--- NOTE | 2025-01-10 11:10 | MRI_ITS ---
PROCEDURE: MRI ABD WITH AND W/O CONTRAST 01/10/2025 REASON FOR EXAM: LIVER FIBROSIS, FATTY LIVER TECHNIQUE: Procedure Code: [id number] Modality: MR Procedure: MRI ABD WITH AND W/O CONTRAST Multiplanar and multisequence images were obtained. CONTRAST: Clariscan VOLUME: 22 mL COMPARISON: None FINDINGS: Liver: Liver is non cirrhotic. No mass is seen. No findings of fatty infiltration at this time (series 10, series 11). Biliary: The gallbladder is surgically absent. Intrahepatic ducts and common bile duct appear normal. Pancreas: Normal Spleen: Normal Adrenals: Normal Kidneys: Normal Peritoneum / Retroperitoneum: No mass or free fluid. Mild erickson infiltration of the small bowel mesentery is seen. No significant mesenteric lymphadenopathy. Lymph Nodes: None appear enlarged Major Vessels: Normal caliber. Bones: Unremarkable MRI/MRI Abd WITH and W/O Contrast IMPRESSION: 1. Unremarkable appearance of the liver. 2. Cholecystectomy. 3. Mild erickson infiltration of the small bowel mesentery. No significant lymph adenopathy. Non-specific but can be associated with mesenteric adenitis. Reading Location: [id number]
== END | disposition home or self-care (01) ==
LOC: MRI 10:50
PROVIDERS: PCP Family Medicine; Referring Provider Internal Medicine Gastroenterology; Visit Provider Internal Medicine Gastroenterology
DX: K74.02 Hepatic fibrosis, advanced fibrosis (principal); K76.0 Fatty (change of) liver, not elsewhere classified; R93.5 Abnormal findings on diagnostic imaging of other abdominal regions, including retroperitoneum
CPT/HCPCS: 74183; A9575; A4216

== ENCOUNTER → 2025-02-15 | Outpatient (CLI) | payer OTHER, SELFPAY ==
[2025-02-15 09:49] LABS: Ionized Calcium Order 1.20
[2025-02-15 11:11] LABS: Hematocrit 40.1 % (37-47); Hemoglobin 13.2 g/dL (12.0-15.0); Mean Corp Hgb Conc 32.9 g/dL (32-36); Mean Corpuscular Volume 84.1 fL (81-99); Mean Platelet Vol. 10.2 fl (6.2-12.0); Platelet Count 359 K/mm3 (150-450); RBC Distribution Width CV 13.7 % (11.6-14.6); RBC Distribution Width SD 42.5 fl (35.1-43.9); Red Blood Count 4.77 M/mm3 (4.2-5.4); White Blood Count 6.7 K/mm3 (4.4-11.0)
[2025-02-15 12:13] LABS: AST(SGOT) 14 U/L (<=31); Alanine Aminotransfer ALT/SGPT 20 U/L (<=34); Albumin, Serum 4.2 g/dL (3.5-5.0); Alkaline Phosphatase 69 U/L (35-104); Anion Gap 13 (5-15); BUN 11 mg/dL (4-19); BUN/Creat Ratio 18.4 RATIO (10-20); CRP 7.29 mg/L (0.0-3.0); Calcium,Total 9.5 mg/dL (7.6-11.0); Carbon Dioxide 24.5 mmol/L (21.0-32.0); Chloride 103 mmol/L (98-108); Cholesterol 146 mg/dL (<=200); Globulin 3.1 g/dL (2.2-4.2); Glucose 86 mg/dL (70-99); Low Density Lipoprotein Calc. 77 mg/dL; Magnesium 2.3 mg/dL (1.5-2.2); Potassium 4.0 mmol/L (3.3-5.1); Triglycerides 113 mg/dL; Uric Acid 5.2 mg/dL (2.6-6.0); Very Low Density Lipoprotein 23 mg/dL (5-40); cholesterol:hdl ratio screen 3.13
[2025-02-15 12:15] LABS: CORTISOL AM 17.40 ug/dL (6.02-18.40); Ferritin 45 ng/mL (22-378); Follicle Stimulating Hormone 5.5 mIU/mL; Vitamin D,25 Hydroxy 43.6 ng/mL (30-100)
[2025-02-17 13:08] LABS: ANTINUCLEAR ANTIBODIES DIRECT Negative (Negative)
[2025-02-19 12:08] LABS: Testosterone, % Free 2.00 % (0.50-2.80); Testosterone, Free 0.50 ng/dL (0.10-0.85)
== END | disposition home or self-care (01) ==
LOC: LAB 08:58
PROVIDERS: PCP Family Medicine; Referring Provider Family Medicine; Visit Provider Family Medicine
DX: Z00.00 Encounter for general adult medical examination without abnormal findings (principal); G90.1 Familial dysautonomia [Riley-Day]; E66.01 Morbid (severe) obesity due to excess calories; R53.82 Chronic fatigue, unspecified; R76.89 Other specified abnormal immunological findings in serum
CPT/HCPCS: 36415; 80053; 80061; 82024; 82306; 82330; 82533; 82670; 82728; 83001; 83002; 83036; 83735; 84402; 84403; 84443; 84550; 85027; 85652; 86038; 86140; 86376

== ENCOUNTER → 2025-02-24 | Outpatient (CLI) | payer OTHER, SELFPAY ==
--- NOTE | 2025-02-24 14:11 | US_ITS ---
PROCEDURE: PELVIC W/ TRANSVAGINAL 02/24/2025 REASON FOR EXAM: RIGHT OVARIAN CYST AND LEFT HYDROSALPINX TECHNIQUE: Procedure Code: [id number] Modality: US Procedure: PELVIC W/ TRANSVAGINAL COMPARISON: Pelvic ultrasound dated 11/29/2024 FINDINGS: Measurements: Uterus: 10.9 x 8.5 x 6.3 with a volume of 307 mL Endometrial Thickness: 8 Right Ovary: 4.8 x 4.1 x 3.3 with a volume of 34 mL. Left Ovary: 3.1 x 2.5 x 1.9 with a volume of 7.9 mL. Uterus: The uterus is anteverted. 3 hypoechoic masses are seen within the myometrium most likely representing uterine fibroids. These measure 4.1 x 3.8 x 3.7 cm, 2.9 x 2.1 x 1.9 cm and 1.7 x 1.7 x 1.5 cm. The cervix is within normal limits. Endometrium: 8 mm. Endometrium is hyperechoic. There is no IUD. Right ovary: There is flow in the right ovary. There is a complex cystic structure measuring 6.4 x 5.9 x 5.5 cm in the right ovarian adnexal region. This has internal echoes and is similar when compared to the prior exam. It is most compatible with an endometrioma. Given the stability in size and appearance and most likely represents a benign process however both benign and malignant neoplastic processes should be considered. 1 more short-term follow- up ultrasound in 3 months is recommended to document continued stability. Left ovary: Size, contour and echogenicity are within normal limits. There is flow within the ovary. The left fallopian tube appears to be dilated. This is similar when compared to the prior pelvic CT examination and most likely represents a nonspecific left hydrosalpinx. Other: Urinary bladder measures 12.7 x 10.5 x 6.1 cm. Urinary bladder volume measures 423 mL. Bladder wall is not thick measuring 2 mm. There is no filling defects or masses seen within the urinary bladder. There is no free fluid in the cul-de-sac. US/Pelvic w/ Transvaginal IMPRESSION: 1. Uterine fibroids. 2. Left hydrosalpinx. 3. Right ovarian adnexal mass most likely representing an endometrioma as disc ussed above. 1 more short-term follow-up ultrasound in 3 months is recommended to document continued stability. Reading Location: [facility]
== END | disposition home or self-care (01) ==
LOC: US 14:10
PROVIDERS: PCP Family Medicine; Referring Provider Obstetrics & Gynecology; Visit Provider Obstetrics & Gynecology
DX: N70.11 Chronic salpingitis (principal); N83.201 Unspecified ovarian cyst, right side
CPT/HCPCS: 76830; 76856

== ENCOUNTER 2025-03-04 18:00 | Observation (INO) | payer OTHER, SELFPAY ==
--- NOTE | 2025-02-26 15:37 | PAT.ANESEVAL ---
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 When Was Last Pacemaker Check QUESTION #4 FULL TEXT: You/Your Family Experience fever (hyperthermia) with Anesthesia Last Oral Intake Last Oral intake: Last Oral Intake NPO since Meds taken in AM with sips of water? Meds patient instructed to take am of surgery PONV PONV - civil cad tech: PONV - civil cad tech Female Yes 02/24/25 11:41 HX of Motion Sickness No 02/24/25 11:41 HX of N/V After Surgery No 02/24/25 11:41 Non-Smoker Yes 02/24/25 11:41 Duration of Surgery greater No 02/24/25 11:41 than 60 minutes Number of Risk Factors 2 02/24/25 11:41 PONV Score Moderate Risk 02/24/25 11:41 Height & Weight Height & Weight: Anesthesia: Height & Weight Height 5 ft 4 in 01/03/25 08:52 Respiratory Assessment Respiratory Assessment - civil cad tech: Respiratory Tract Infection Hx - civil cad tech Hx Respiratory Tract Infection No 02/24/25 11:41 STOP Sleep Apnea STOP Sleep Apnea - civil cad tech: STOP Sleep Apnea - civil cad tech Hx Hypertension Yes: CONTROLLED, PT HAS HUGE 02/24/25 11:41 ANXIETY Hx Sleep Apnea No 02/24/25 11:41 CPAP No 02/24/25 11:41 BIPAP No 02/24/25 11:41 Do you snore loudly (louder No 02/24/25 11:41 than talking or can be heard Do you often feel tired/ No 02/24/25 11:41 fatigued/ sleepy during daytime? Has anyone observed you stop No 02/24/25 11:41 breathing during sleep? STOP Results Negative 02/24/25 11:41 QUESTION #5 FULL TEXT : Do you snore loudly (louder than talking or can be heard through closed doors)? 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 Specify any problems Hx of Preganancy in last 3 N/A 02/24/25 11:41 Months Nurse Filling Out Transfusion [facility] 02/24/25 11:41 & Questions: Date: 02/24/25 02/24/25 11:41 Time: 11:44 02/24/25 11:41 Patient unable to answer at this time (ie. confused, unrespo /Reproduction History /Reproductive History - civil cad tech: /Reproductive Hx- civil cad tech Hx Now No 02/24/25 11:41 Gestational Age (in weeks): EDC: Hx Hx Para Hx Section SAB No 02/24/25 11:41 PFSH Medical History History of Holter monitoring Gastric reflux History of irregular heartbeat Jimenez Veronica infection Wears glasses Arthritis Excessive bleeding Back pain Migraine headache History of hiatal hernia History of IBS Former smoker CPAP (continuous positive airway pressure) dependence Sleep apnea History of stress test History of echocardiogram Cardiology follow-up encounter Psoriasis Menieres disease Essential hypertension EVARISTO on CPAP Localized scleroderma Hypoglycemia Low serum progesterone Carpal tunnel syndrome Seasonal allergies Syncope POTS (postural orthostatic tachycardia syndrome) Intermittent palpitations Depression Asthma Vitamin D deficiency GERD (gastroesophageal reflux disease) Morbid obesity with body mass index of 40.0-49.9 Fibroids Scleroderma Home Medications ?Medication ?Instructions ?Recorded ?Last Taken ?Type fluticasone propionate 50 1 spray intranasal BID PRN nasal 01/15/18 Unknown History mcg/actuation nasal congestion spray,suspension melatonin 1 mg tablet 2 mg PO QHS 11/09/22 Unknown History magnesium citrate,mag oxide 250 mg 250 mg PO QHS 11/01/24 Unknown History capsule propranolol 10 mg tablet 20 mg PO .COMPLEX 11/01/24 Unknown History escitalopram oxalate 10 mg tablet 20 mg PO QDAY 02/17/25 Unknown History cholecalciferol (vitamin D3) 25 50 mcg PO DAILY 02/24/25 Unknown History mcg (1,000 unit) capsule (Vitamin D3) clobetasol 0.05 % scalp solution 1 applic topical PRN 02/24/25 Unknown History cyanocobalamin (vitamin B-12) 250 250 mcg PO DAILY 02/24/25 Unknown History mcg tablet (Vitamin B-12) famotidine 20 mg tablet (Acid 20 mg PO DAILY GERD 02/24/25 Unknown History Controller) ferrous gluconate 225 mg (27 mg 225 mg PO .Q3 DAYS 02/24/25 Unknown History iron) tablet vitamin E 268 mg (400 unit) capsule 268 mg PO DAILY 02/24/25 Unknown History amlodipine 5 mg tablet 5 mg PO QDAY #30 tabs 02/26/25 Unknown Rx Allergy/AdvReac Type Severity Reaction Status Date / Time shellfish derived Allergy Unknown Unknown Verified 02/26/25 14:17 ciprofloxacin (From Cipro) Allergy Other Verified 02/26/25 14:17 ciprofloxacin HCl (From Allergy Other Verified 02/26/25 14:17 Cipro) moxifloxacin HCl (From Allergy Other Verified 02/26/25 14:17 Avelox) peanut Allergy Unknown Verified 02/26/25 14:17 Penicillins Allergy Hives Verified 02/26/25 14:17 prednisone Allergy Other Verified 02/26/25 14:17 sulfamethoxazole (From AdvReac Unknown unknown Verified 02/26/25 14:17 Septra) trimethoprim (From Septra) AdvReac Unknown unknown Verified 02/26/25 14:17 Family History Unknown Hypertension High cholesterol Mother Breast cancer Aunt Breast cancer Surgical History Hx of colonoscopy History of esophagogastroduodenoscopy (EGD) S/p bilateral carpal tunnel release History of tonsillectomy Hx of cholecystectomy Social History household members: spouse number of children: 0 current occupational status: employed current occupation: [employer] history of recent travel: No sexually active: Yes Smoking Status: Former smoker how long ago did patient quit smokin.5 years ago alcohol intake: current alcohol intake frequency: holidays/special occasions only substance use type: does not use caffeine: Yes Type: coffee what type of physical activity do you participate in: none seatbelt use: always do you feel safe at home: Yes additional social history: - [place] Audit: Pertinent Findings Pertinent Findings Echo (EF%) pertinent findings: 08/09/2023. Normal size function EF 65%. Normal valves Consult pertinent findings: Cardiology 02/26/2025. Hypertension chronic. Controlled on medication. Postural orthostatic tachycardia syndrome. Chronic. Recommendation Anesthesia Recommendation Anesthesia recommendation: OPTIMIZED for anesthesia
[2025-03-04] VITALS (12 sets, daily range): BP systolic 117–146; BP diastolic 60–98; PULSE 74–91; RESP 12–18; TEMP 36.1–36.8; O2SAT 95–100; BMI 37.0; BMI 36.8
[2025-03-04 12:05] LABS: Internal QC Validated? YES +Cl - CLEAR BKGD; Pregnancy, Urine Negative Negative; Record Kit Lot#,Urine Preg 980607
[2025-03-04] MEDS: Lactated Ringers 1,000 ML 15 ML IV (12:15)
--- NOTE | 2025-03-04 12:31 | PRE.ANES_ITS ---
ASA Classification* ASA Classification ASA Classification: 2 Assessment & Plan Anesthesia* Anesthesia Assessment Anesthesia Assessment: Discussed sedation and/or anesthesia options, risks, benefits, and alternatives with patient/parents/legal guardian/POA. Questions invited. The patient/parents/legal guardian/POA seems to understand and agrees to proceed with anesthesia plan. Reviewed the physical assessment, medical history, allergy history and patient home medications list prior to surgery/procedure/anesthetic and documented any changes. Performed airway and anesthesia risk assessments. Anesthesia Type Anesthesia Type: General History Source History Obtained from:: Patient and Chart Anesthesia Focused Assessment* Temperature: 98.3 F Pulse Rate: 74 Blood Pressure: 145/79 Respiratory Rate: 16 Pulse Ox: 100 Oxygen Delivery Method: Room Air Airway Assessment Mouth opens: >3 cm Mallampati Score: II Teeth Condition: Intact Neck Range of motion (ROM): Full ROM Labs Anesthesia Preop lab: CBC WBC, (4.4-11.0) 6.7 K/mm3 02/15/25, : RBC, (4.2-5.4) 4.77 M/mm3 02/15/25, :02 Hgb, (12.0-15.0) 13.2 g/dL 02/15/25, :02 Hct, (37-47) 40.1 % 02/15/25, 09:02 Plt Count, (150-450) 359 K/mm3 02/15/25, 09:02 CHEMISTRY Potassium, (3.3-5.1) 4.0 mmol/L 02/15/25, : Sodium, (133-145) 140 mmol/L 02/15/25, 09: Magnesium, (1.5-2.2) 2.3 mg/dL H 02/15/25, 09:02 BUN, (4-19) 11 mg/dL 02/15/25, 09:02 Creatinine, (0.70-1.20) 0.58 mg/dL L 02/15/25, 09:02 Glucose, (70-99) 86 mg/dL 02/15/25, 09:02 TSH, (0.300-4.200) 1.440 uIU/mL 02/15/25, 09:02 COAG Urine Test Negative Negative Today, 11:55 [facility] Negative 09/28/22, 13:21 Pre-Assessment Diagnosis/Proposed Procedure Planned Operative Procedure(s): LAP RIGHT OVARIAN CYSTECTOMY, LEFT SALPINGECTOMY, HYSTEROSCOPY D&C Anesthesia History 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 When Was Last Pacemaker Check QUESTION #4 FULL TEXT: You/Your Family Experience fever (hyperthermia) with Anesthesia Last Oral Intake Last Oral intake: Last Oral Intake NPO since 07:30 03/04/25 12:09 Meds taken in AM with sips of Yes 03/04/25 12:09 water? Meds patient instructed to medlist 03/04/25 12:09 take am of surgery PONV PONV - application security engineer: PONV - application security engineer Female Yes 02/27/25 09:25 HX of Motion Sickness No 02/27/25 09:25 HX of N/V After Surgery No 02/27/25 09:25 Non-Smoker Yes 02/27/25 09:25 Duration of Surgery greater No 02/27/25 09:25 than 60 minutes Number of Risk Factors 2 02/27/25 09:25 PONV Score Moderate Risk 02/27/25 09:25 Height & Weight Height & Weight: Anesthesia: Height & Weight Height 5 ft 4 in 03/04/25 12:09 Weight: 98 kg 03/04/25 12:09 Body Mass Index (BMI) 37.0 03/04/25 12:09 Respiratory Assessment Respiratory Assessment - application security engineer: Respiratory Tract Infection Hx - application security engineer Hx Respiratory Tract Infection No 02/27/25 09:25 STOP Sleep Apnea STOP Sleep Apnea - application security engineer: STOP Sleep Apnea - application security engineer Hx Hypertension Yes: CONTROLLED, PT HAS HUGE 02/27/25 09:25 ANXIETY Hx Sleep Apnea Yes 02/27/25 09:25 CPAP Yes 02/27/25 09:25 BIPAP No 02/27/25 09:25 Do you snore loudly (louder No 02/27/25 09:25 than talking or can be heard Do you often feel tired/ No 02/27/25 09:25 fatigued/ sleepy during daytime? Has anyone observed you stop No 02/27/25 09:25 breathing during sleep? STOP Results Positive 02/27/25 09:25 QUESTION #5 FULL TEXT : Do you snore loudly (louder than talking or can be heard through closed doors)? 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 Specify any problems Hx of Preganancy in last 3 N/A 02/27/25 09:25 Months Nurse Filling Out Transfusion [facility] 02/27/25 09:25 & Questions: Date: 02/27/25 02/27/25 09:25 Time: :02/27/25 09:25 Patient unable to answer at this time (ie. confused, unrespo /Reproduction History /Reproductive History - application security engineer: /Reproductive Hx- application security engineer Hx Now No 02/27/25 09:25 Gestational Age (in weeks): EDC: Hx Hx Para Hx Section SAB No 02/27/25 09:25 Active Medications Active Medications: Current Medications Generic Name Dose Route Start Last Admin Trade Name Freq PRN Reason Stop Dose Admin Lactated Ringer's 1,000 mls @ 15 mls/hr 03/04/25 11:45 03/04/25 12:15 IV 15 mls/hr .Q48H ZACHARY Administration PFSH Medical History History of Holter monitoring Gastric reflux History of irregular heartbeat Jimenez Veronica infection Wears glasses Arthritis Excessive bleeding Back pain Migraine headache History of hiatal hernia History of IBS Former smoker CPAP (continuous positive airway pressure) dependence Sleep apnea History of stress test History of echocardiogram Cardiology follow-up encounter Psoriasis Menieres disease Essential hypertension EVARISTO on CPAP Localized scleroderma Hypoglycemia Low serum progesterone Carpal tunnel syndrome Seasonal allergies Syncope POTS (postural orthostatic tachycardia syndrome) Intermittent palpitations Depression Asthma Vitamin D deficiency GERD (gastroesophageal reflux disease) Morbid obesity with body mass index of 40.0-49.9 Fibroids Scleroderma Home Medications ?Medication ?Instructions ?Recorded ?Last Taken ?Type fluticasone propionate 50 1 spray intranasal BID PRN n ginny 01/15/18 Unknown History mcg/actuation nasal congestion spray,suspension melatonin 1 mg tablet 2 mg PO QHS 11/09/22 Unknown History magnesium citrate,mag oxide 250 mg 250 mg PO QHS 11/01 Unknown History capsule propranolol 10 mg tablet 20 mg PO .COMPLEX 11/01/24 1 History escitalopram oxalate 10 mg tablet 20 mg PO QDAY 03/04/25 History cholecalciferol (vitamin D3) 25 50 mcg PO DAILY Unknown History mcg (1,000 unit) capsule (Vitamin D3) clobetasol 0.05 % scalp solution 1 applic topical PRN 02/24/25 Unknown History cyanocobalamin (vitamin B-12) 250 250 mcg PO DAILY Unknown History mcg tablet (Vitamin B-12) famotidine 20 mg tablet (Acid 20 mg PO DAILY GERD 02/06 Unknown History Controller) ferrous gluconate 225 mg (27 mg 225 mg PO .Q3 DAYS Unknown History iron) tablet vitamin E 268 mg (400 unit) capsule 268 mg PO DAILY Unknown History Allergy/AdvReac Type Severity Reaction Status Date / Time shellfish derived Allergy Unknown Unknown Verified 03/04/25 12:06 ciprofloxacin (From Cipro) Allergy Other Verified 03/04/25 12:06 ciprofloxacin HCl (From Allergy Other Verified 03/04/25 12:06 Cipro) moxifloxacin HCl (From Allergy Other Verified 03/04/25 12:06 Avelox) peanut Allergy Unknown Verified 03/04/25 12:06 Penicillins Allergy Hives Verified 03/04/25 12:06 prednisone Allergy Other Verified 03/04/25 12:06 sulfamethoxazole (From AdvReac Unknown unknown Verified 03/04/25 12:06 Septra) trimethoprim (From Septra) AdvReac Unknown unknown Verified 03/04/25 12:06 Family History Unknown Hypertension High cholesterol Mother Breast cancer Aunt Breast cancer Surgical History Hx of colonoscopy History of esophagogastroduodenoscopy (EGD) S/p bilateral carpal tunnel release History of tonsillectomy Hx of cholecystectomy Social History household members: spouse number of children: 0 current occupational status: employed current occupation: [employer] history of recent travel: No sexually active: Yes Smoking Status: Former smoker how long ago did patient quit smokin.5 years ago alcohol intake: current alcohol intake frequency: holidays/special occasions only substance use type: does not use caffeine: Yes Type: coffee what type of physical activity do you participate in: none seatbelt use: always do you feel safe at home: Yes additional social history: - [employer] Review of Systems (Anesthesia) ROS Narrative System reviewed and no additional complaints, except as documented.
--- NOTE | 2025-03-04 12:54 | HP.PCM_ITS ---
History and Physical Date of Admission: 03/04/25 Intake Vital Signs 01/04/2508:52 02/17/2510:48 02/17/2510:50 Height 5 ft 4 in 5 ft 4 in 5 ft 4 in Weight: 221 lb 1 oz BMI 37.9 BP 156/89 H Intake Visit Reasons: left salping, rt poss. cysto vs salping, D&C Front Sight Attacher Required: No Is patient in pain?: No Allergies shellfish derived Allergy (Unknown, Verified 02/17/25 10:48) Unknown ciprofloxacin (From Cipro) Allergy (Verified 02/17/25 10:48) Other ciprofloxacin HCl (From Cipro) Allergy (Verified 02/17/25 10:48) Other moxifloxacin HCl (From Avelox) Allergy (Verified 02/17/25 10:48) Other peanut Allergy (Verified 02/17/25 10:48) Unknown Penicillins Allergy (Verified 02/17/25 10:48) Hives prednisone Allergy (Verified 02/17/25 10:48) Other sulfamethoxazole (From Septra) Adverse Reaction (Unknown, Verified 02/17/25 10:48) unknown trimethoprim (From Septra) Adverse Reaction (Unknown, Verified 02/17/25 10:48) unknown Medications ?Medication ?Instructions ?Recorded ?Confirmed ?Type fluticasone propionate 50 1 spray intranasal BID PRN nasal 8 02/17/25 History mcg/actuation nasal congestion spray,suspension melatonin 1 mg tablet 2 mg PO QHS 11/09/22 02/17/25 History magnesium citrate,mag oxide 250 mg 250 mg PO QHS 11/01/24 02/17/25 History capsule propranolol 10 mg tablet 20 mg PO .COMPLEX 11/01/24 02/17/25 Hist ory amlodipine 5 mg tablet 5 mg PO QDAY #30 tabs 11/06/24 02/17/25 Rx escitalopram oxalate 10 mg tablet 20 mg PO QDAY 02/17/25 02/17/25 History Post menopausal: No Patient : No : No PFSH Medical History Jimenez Veronica infection Wears glasses Arthritis Excessive bleeding Back pain Migraine headache History of hiatal hernia History of IBS Former smoker CPAP (continuous positive airway pressure) dependence Sleep apnea History of stress test History of echocardiogram Cardiology follow-up encounter Psoriasis Menieres disease Essential hypertension EVARISTO on CPAP Localized scleroderma Hypoglycemia Low serum progesterone Carpal tunnel syndrome Seasonal allergies Syncope POTS (postural orthostatic tachycardia syndrome) Intermittent palpitations Depression Asthma Vitamin D deficiency GERD (gastroesophageal reflux disease) Morbid obesity with body mass index of 40.0-49.9 Fibroids Scleroderma Surgical History Hx of colonoscopy History of esophagogastroduodenoscopy (EGD) S/p bilateral carpal tunnel release History of tonsillectomy Hx of cholecystectomy Family History Unknown Hypertension High cholesterol Mother Breast cancer Aunt Breast cancer Social History household members: spouse number of children: 0 current occupational status: employed current occupation: [employer] history of recent travel: No sexually active: Yes Smoking Status: Former smoker how long ago did patient quit smokin.5 years ago alcohol intake: current alcohol intake frequency: holidays/special occasions only substance use type: does not use caffeine: Yes Type: coffee what type of physical activity do you participate in: none seatbelt use: always do you feel safe at home: Yes additional social history: - [place] HPI left salping, rt poss. cysto vs salping, D&C Details: EVELYN ATKINSON is a 44 year old who presents for preop visit. She was found to have a 6 cm hemorrhagic cyst on the right ovary and a left hydrosalpinx as well as heavy bleeding. She is scheduled for a hysteroscopy D&C and a laparoscopic right ovarian cystectomy and left salpingectomy. An MRI of her liver was performed recently and was found to be normal. ultrasound from November: FINDINGS: Uterus is anteverted and measures 10.1 x 8.1 x 6.5 cm. No abnormal collection is seen within the uterine cavity. Endometrial stripe complex appears within normal limits measuring up to 1 cm. Multiple uterine fibroids are seen. Posterior lower uterine segment intramural fibroid measures 1.7 x 1.7 x 1.6 cm. Posterior uterine body subserosal fibroid measures 2.9 x 2.7 x 2.1 cm. The largest probable intramural fibroid at the right aspect of the uterine fundus measures 4.5 x 4.2 x 3.6 cm. Left ovary measures 4.5 x 2.8 x 2.7 cm. Right ovary measures 5.1 x 3.8 x 3.8 cm. Simple appearing fluid-filled tubular structure adjacent to the left ovary, consistent with nonspecific left hydrosalpinx. Right ovary contains a complex exophytic cyst measuring 6 x 5.5 x 4.7 cm, with homogeneous internal low-level echoes consistent with hemorrhage, typical appearance for endometrioma. Blood flow is demonstrated within bilateral ovaries on color Doppler. No significant free fluid is seen within the pelvis. US/Pelvic w/ Transvaginal IMPRESSION: 1. Multiple uterine fibroids, as described above. 2. Nonspecific left-sided hydrosalpinx. 3. Right ovarian/adnexal complex hemorrhagic cyst, consistent with endometrioma. History 0 Elective abortions Hx Para Spontaneous abortions Hx # Term Pregnancies Ectopic pregnancies Hx # Pregnancies Multiple births # of living children ROS Const ROS Unobtainable: All systems reviewed & are unremarkable except as noted in H Resp Resp: Reports system reviewed and no additional complaints, except as documented; Denies cough GI GI: Reports as per HPI Psych Psych: Reports system reviewed and no additional complaints, except as documented Exam Const General: cooperative, healthy appearing, comfortable and no acute distress Resp Effort & Inspection: normal respiratory effort Skin General: no rashes or lesions noted Psych Appearance: grossly normal Speech and Movement: speech and movement normal Coding Level of Care Code Off vis,est,level 4 Diagnoses Hydrosalpinx N70.11 Cyst of right ovary N83.201 Laterality: right Enlarged uterus N85.2 Cervical stenosis (uterine cervix) N88.2 History of irregular menstrual bleeding Z87.42 Assessment and Plan Assessment and Plan (1) Hydrosalpinx: Status: Acute (2) Ovarian cyst: Status: Acute Qualifiers: Laterality: right Qualified Code(s): N83.201 - Unspecified ovarian cyst, right side (3) Enlarged uterus: Status: Acute (4) Cervical stenosis (uterine cervix): Status: Acute Comment: Unable to complete EMB (5) History of irregular menstrual bleeding: Status: Acute Orders: Orders Pelvic w/ Transvaginal Today N70.11 - Chronic salpingitis, N83.201 - Unspecified ovarian cyst, right side Plan After discussing the patient's diagnosis and treatment plan options, patient wishes to proceed with surgical management. I have discussed with the patient the risks, benefits, and alternatives of the procedure which include but are not limited to risks of anesthesia, bleeding, infection, possible damage to bowel, bladder, or surrounding vasculature which could lead to additional surgery to evaluate any complications. Patient agrees to procedure and wishes to proceed. ACOG/uptodate references given for additional information regarding procedure. plan for laparoscopic right ovarian cystectomy, left salpingectomy, hysteroscopy dilation and curettage
--- NOTE | 2025-03-04 12:55 | PCM.DC ---
Discharge Instructions DC O2, CPAP, BIPAP needs Home O2 Discharge instructions: No Dressing / Incision Discharge Activity: Return to Normal Activity, May Not Drive (for two weeks or while taking narcotic pain medications.), May Shower and May Take a Tub Bath (in 7 days) May resume sexual activity in: 1 week Weight Bearing Status: Full weight bearing Dressing / Incision Call your doctor if you observe: Using more than 1 pad per hour, Shortness of breath, Chest pain and Uncontrolled pain Suture Line Care: Avoid Pulling/Pushing and Avoid Pinching/Bending Remove Dressing in: 1 week (if present) Cleanse incision/area with: Soap & Water and Keep Dressing Clean & Dry Follow Up Care Please Follow Up With: Marlyn Tenorio DO When: Call to make an appointment with your doctor for a follow up incision check in 1-2 weeks. Test Results: Test results from this visit will be discussed in further detail at your follow-up appointment, if applicable. Discharge Plan Admission Primary Reason for Your Visit: laparoscopy and D&C Attending Provider: Marlyn Tenorio Primary Care Provider: Manohar Mcrae Instructions Print Language: [place] Islander Discharge Orders/Prescriptions Prescriptions: New oxycodone-acetaminophen [Percocet] 5-325 mg tablet 1 tab PO Q4H PRN (Reason: pain) 7 Days Qty: 20 0RF Continued escitalopram oxalate 10 mg tablet 20 mg PO QDAY magnesium citrate,mag oxide 250 mg capsule 250 mg PO QHS fluticasone propionate 50 mcg/actuation spray,suspension 1 spray INTRANASAL BID PRN (Reason: nasal congestion) Patient Comments: NASAL SPRAY melatonin 1 mg tablet 2 mg PO QHS propranolol 10 mg tablet 20 mg PO .COMPLEX Rx Instructions: 20 mg qam, 10 mg noon, 10 mg qpm cholecalciferol (vitamin D3) [Vitamin D3] 25 mcg (1,000 unit) capsule 50 mcg PO DAILY vitamin E 268 mg (400 unit) capsule 268 mg PO DAILY cyanocobalamin (vitamin B-12) [Vitamin B-12] 250 mcg tablet 250 mcg PO DAILY ferrous gluconate 225 mg (27 mg iron) tablet 225 mg PO .Q3 DAYS clobetasol 0.05 % solution 1 applic TOPICAL PRN Patient Comments: APPLY TO SCALP TWICE A DAY FOR 14 DAYS- HOLD FOR 1 WEEK -USE FOR FLARES famotidine [Acid Controller] 20 mg tablet 20 mg PO DAILY Referrals / Follow Up: Manohar Mcrae MD [Primary Care Provider, Family Practice] Disposition Disposition (needs filled in before D/C Order can be placed): Home, Self Care
--- NOTE | 2025-03-04 13:15 | FALS_PTH ---
PATIENT: EVELYN ATKINSON LOC: MS3 U#:[id number] AGE/SX: 44/F ROOM: [facility] [place]03/04/[address]: Dr. Marlyn Tenorio DO : 1980 BED: 1 DIS: 03/05/2025 SPEC #: [id number] RECD: 03/04/25 17:32 STATUS: JOON REJI #: [id number] SHAKIRA: 03/04/25 13:[address]: Marlyn Tenorio DEPT: SURGICAL PATHOLOGY RECD BY: Aniceto Pennington ENTERED: 03/05/25 10:25 SP TYPE: FALL TUBES OTHR DR: Dr. Manohar Mcrae MD Tissues: A - Fallopian tube B - Endometrium, NOS Procedures: Immunohistochemical Stains Surgery Specimen Level IV HEADER OPERATION: Laparoscopic bilateral salpingo-oopherectomy, hysteroscopy PRE-OP DIAGNOSIS: Hydrosalpinx, ovarian cyst, enlarged uterus, cervical stenosis, history of irregular menstrual bleeding TISSUE SUBMITTED: A- Bilateral fallopian tubes and bilateral ovaries, B- Endometrial curettings MICROSCOPIC DIAGNOSIS A. Bilateral fallopian tubes, bilateral ovaries, laparoscopic bilateral salpingo-oophorectomy: - Hydrosalpinx with acute inflammation and focal endometriosis (tube #1). - Endometriosis (tube #2). - Endometriosis (ovary #1). - Hemorrhagic corpus luteum 1.5 cm, hemorrhagic simple cyst with numerous siderophages 6.5 cm (ovary #2) - see note. Note: The large (6.5 cm) hemorrhagic cyst of ovary #2 may represent an endometrioma. No neoplasia is seen in these sections. B. Endometrium, curettage: - Endometrial hyperplasia with atypia and squamous metaplasia, arising in a background of proliferative endometrium. - Fragments of endocervical mucosal. - Polypoid fragments of edematous tissue with smooth muscle, benign - see note. - See Comment. Note: IHC for Desmin is positive. COMMENT B) Selected slides/images were reviewed in intradepartmental consultation by Dr Willie Aguirre ([facility] pathology division, [facility]). MICROSCOPIC DESCRIPTION Slides are reviewed. All matched controls reacted appropriately. These tests were developed and their performance characteristics determined by [facility]. They may not have been cleared or approved by the U.S. Food and Drug Administration. The FDA has determined that such clearance or approval is not necessary. The above immunohistochemical markers and/or special?stains have been reviewed by the Pathologist. GROSS DESCRIPTION Received in 2 formalin containers labeled with the patient's name and date of . Designated as: A. Bilateral fallopian tubes and bilateral ovaries are 2 fallopian tubes and 2 ovaries, devoid of orientation as follows: Fallopian tube #1: 7.9 x 1.7 cm orosco-pink to grimm, shaggy fallopian tube in 2 pieces, devoid of fimbria; sectioning reveals orosco-white, rubbery to fibrotic cut surfaces. Fallopian tube #2: 4.7 x 0.8 cm pink-purple, fimbriated fallopian tube with a 0.7 cm paratubal cyst. Ovary #1: 11.4 g, 3.7 x 3.6 x 2.2 cm orosco-white, shaggy cauterized and focally disrupted; sectioning reveals orosco-yellow to pink-red, predominantly solid slightly irregular cut surfaces. Ovary #2: 52 g, 3.1 x 2.8 x 2.4 cm orosco-white, shaggy and somewhat cerebriform ovary with an attached, previously disrupted cyst expelling hemorrhagic material, 6.5 x 5.4 x 1.8 cm. Sectioning reveals orosco-yellow to white, solid ovarian cut surfaces with a 1.5 x 1.2 cm hemorrhagic corpus luteum. The cyst contains copious amounts of semisolid hemorrhagic material and the cyst wall is orosco to red-brown and wrinkled, devoid of identifiable excrescences. Mobile Qa Tester sections are submitted in 10 cassettes as follows: A1-A2: Fallopian tube #1A3: Fallopian tube #2A4-A6: Ovary #1A7-A8: Ovary #8B7-C01: Ovary #2, cyst B. Endometrial curettings is a 2.9 x 2.3 x 0.3 cm aggregate of dark red clotted blood, mucoid material and flecks of possible tissue. Entirely submitted in 1 cassette. PR 03/05/2025 CPT:22831l9,41113
[2025-03-04] MEDS: Midazolam 2 MG/2 ML Syringe IV (13:42)
[2025-03-04] MEDS: fentaNYL 100 MCG/2 ML Ampul IV (13:42)
[2025-03-04] MEDS: Lidocaine 1% (5 ml sdv) 5 ML Vial 10 ML IV (13:47)
[2025-03-04] MEDS: Cefazolin 1 GM/5 ML Vial 2 GM IV (15:15)
[2025-03-04] MEDS: Lactated Ringers 1,000 ML 1000 ML IV (15:45)
[2025-03-04] MEDS: TRANEXAMIC ACID 1,000 MG/10 ML ML 1000 MG IV (15:59)
[2025-03-04] MEDS: TRANEXAMIC ACID 1,000 MG in 0.9% Normal Saline (100mL Bag) 100 ML 660 MG IV (16:03)
--- NOTE | 2025-03-04 16:07 | OP.PCM_ITS ---
Multi Select Codes Urinary/Genital Urinary/Genital CPT Codes: 41247 Hysteroscopy, diagnostic, 78996-09 LAPARO REMOVE ADNEXA BILAT and 99981 Laproscopic ablation endometriosis Operative Report (Standard) Operative Information Date of Procedure: 03/04/25 Pre-Operative Diagnosis: endometrioma and hydrosalpinx, menorrhagia Post-Operative Diagnosis: extensive bilateral endometriosis of both ovaries and both fallopian tubes, menorrhagia Surgery/Procedure Performed: laparoscopic BSO with adhesiolysis, hysteroscopy D&C press set up person: Yes Marketing Operations Associate: Sydni Perez Tasks completed by physician assistant surgery: Trocar and Retracting Additional compounding assistant?: Yes Additional Bias Binding Cutter #2: Jennifer Miller Tasks completed by compounding assistant #2: Closing Additional compounding assistant?: No Type of Anesthesia: General RN Documented Start/Stop Times: Operation Date: 03/04/25 13:15 Case Time Into Pre-Op 03/04/25 11:37 Out of Pre-Op 03/04/25 13:37 Anesthesia Start 03/04/25 13:43 Into Room 03/04/25 13:43 Procedure Start 03/04/25 14:02 Procedure End 03/04/25 15:55 Procedure Start Time: 14:02 Procedure Stop Time: 15:55 Select all DRAINS/GRAFTS/IMPLANTS that apply: None Estimated Blood Loss: 80cc Specimen collected: Yes Description of specimen(s) removed: bilateral ovaries and fallopian tubes Description of surgery: The patient was brought to the operating room and general anesthesia was found to be adequate she was prepped and draped in the normal sterile fashion. Her legs were placed in stirrups. Sponge stick was placed in the vagina. Attention was turned towards the abdomen and infraumbilical skin incision was made with a scalpel and a 5 mm trocar was inserted into the abdomen under direct visualization using a Visiport. CO2 gas was used to insufflate the abdomen. A left lower quadrant 5 mm trocar was then inserted next followed by a suprapubic 5 mm trocar placement both done under direct visualization. The right ovary was noted to be enlarged approximately 8 cm and adherent to the fundal portion of the uterus and pelvic sidewall. The left fallopian tube was noted to be grossly enlarged and wrapped around the left ovary. The procedure was initiated by first grasping the left fallopian tube and elevating it dissecting off find adhesions from the bowel with blunt dissection until it was peeled away enough to use the LigaSure device. The ovary was encompassed in the fallopian tube and the left ovary was also removed due to bleeding that occurred when trying to leave it behind. Monopolar cautery was attempted and this did not achieve hemostasis in the ovary and fallopian tube were removed in 3 separate pieces. The right ovary was then grasped and in a similar fashion adhesions were carefully taken off using blunt dissection and Payette dissection. The infundibulopelvic ligament was identified cauterized and cut using the LigaSure device. The inferior portion of the ovary was noted to be completely adhesed to the pelvic sidewall and was unfortunately unable to be completely removed. The ovary was amputated and the bed of the amputation site was cauterized using monopolar cautery. Fibrillar was packed onto the bed of the ovary on both sides to create hemostasis both ovaries and fallopian tubes were placed in an Endo Catch bag and removed through the left lower quadrant port site by extending this with a Fabienne clamp and extending the incision slightly with a scalpel. The fascia was closed with a Heri Jovel suture closure device and an 0 Vicryl suture. A second look at the surgical bed showed hemostasis. The left over hemoblast was sprinkled over top of the remaining surgical bed. Next, a hysteroscopy was performed. Weighted speculum was placed in the vagina the anterior lip of the cervix was grasped with a single-tooth tenaculum the uterus was sounded to approximately 9 cm and dilated to 5 mm. A 5 mm hyster oscope was placed into the uterus and intraoperative images showed proliferative appearing tissue. Sharp curettage was performed. A second look with the hysteroscope showed adequate removal of the proliferative tissue. Endometrial curettings were passed off for pathology analysis. Due to the oozing from the surgical bed in the abdomen the decision was made to administer TXA to the patient. The patient tolerated the procedure well sponge lap needle counts were correct x 2 and she is now being brought to the recovery room in stable condition. Surgical Findings: Extensive endometriosis of both fallopian tubes ovaries and uterus. Normal- appearing endometrium. Complications Complications: No Admit VTE Documentation VTE Present on Admission: No VTE Mechan Device Prophylaxis: SCD's VTE Pharm Prophylaxis ordered?: No Reason prophylaxis not ordered: Treatment Not Indicated
--- NOTE | 2025-03-04 17:21 | PCM.POST.ANE ---
Anesthesia: Postop Eval I Current Vital Signs Temperature: 97.6 F Pulse Rate: 74 Blood Pressure: 146/98 Respiratory Rate: 18 Pulse Ox: 96 Oxygen Delivery Method: Simple Mask Oxygen Flow Rate (L/min): 6 Assessment Airway patent: Yes Spontaneous unlabored respirations: Yes Mental status: Awake and Calm nausea: No Vomiting: No Anesthesia Complication: No Fluid Hydration Crystalloid volume administer (ml): 1,000 Total IV fluid infused: 1,000 Progress Note Anesthesia document: Postop Eval 1 completed: Yes
--- NOTE | 2025-03-04 17:23 | POSTOPAN2_ITS ---
Anesthesia Postop Eval I Sum Postop Eval Completion status Anesthesia document: Postop Eval 1 completed: Yes Anesthesia Postop Eval I Summary Anesthesia Postop Eval I Summary: Anesthesia Postop Eval I: Assessment Summary Airway patent Yes 03/04/25 17:23 BRIDGE IRONWORKER.MEDM Spontaneous unlabored Yes 03/04/25 17:23 BRIDGE IRONWORKER.MEDM respirations Mental status Awake,Calm 03/04/25 17:23 BRIDGE IRONWORKER.MEDM nausea No 03/04/25 17:23 BRIDGE IRONWORKER.MEDM Vomiting No 03/04/25 17:23 BRIDGE IRONWORKER.MEDM Anesthesia Postop Eval I: Fluid Summary Crystalloid volume administer 1,000 03/04/25 17:23 BRIDGE IRONWORKER.MEDM (ml) Colloids volume administered ( ml) Blood Product volume administered (ml) Total IV fluid infused 1,000 03/04/25 17:23 BRIDGE IRONWORKER.MEDM Anesthesia Postop Eval I: Summary Notes Anesthesia Complication No 03/04/25 17:23 BRIDGE IRONWORKER.MEDM Anesthesia Complication Comment: Post-operative progress note Anesthesia: Postop Eval II Evaluation Mental status: Awake and Calm Pain Level: 3 nausea: No Vomiting: No Complications Anesthesia Complication: No
--- NOTE | 2025-03-04 17:23 | PCM.POSTANE2 ---
Anesthesia Postop Eval I Sum Postop Eval Completion status Anesthesia document: Postop Eval 1 completed: Yes Anesthesia Postop Eval I Summary Anesthesia Postop Eval I Summary: Anesthesia Postop Eval I: Assessment Summary Airway patent Yes 03/04/25 17:23 GEM STONE CUTTER.MEDM Spontaneous unlabored Yes 03/04/25 17:23 GEM STONE CUTTER.MEDM respirations Mental status Awake,Calm 03/04/25 17:23 GEM STONE CUTTER.MEDM nausea No 03/04/25 17:23 GEM STONE CUTTER.MEDM Vomiting No 03/04/25 17:23 GEM STONE CUTTER.MEDM Anesthesia Postop Eval I: Fluid Summary Crystalloid volume administer 1,000 03/04/25 17:23 GEM STONE CUTTER.MEDM (ml) Colloids volume administered ( ml) Blood Product volume administered (ml) Total IV fluid infused 1,000 03/04/25 17:23 GEM STONE CUTTER.MEDM Anesthesia Postop Eval I: Summary Notes Anesthesia Complication No 03/04/25 17:23 GEM STONE CUTTER.MEDM Anesthesia Complication Comment: Post-operative progress note Anesthesia: Postop Eval II Evaluation Mental status: Awake and Calm Pain Level: 3 nausea: No Vomiting: No Complications Anesthesia Complication: No
--- NOTE | 2025-03-04 17:34 | POSTOPAN2_ITS ---
Anesthesia Postop Eval I Sum Postop Eval Completion status Anesthesia document: Postop Eval 1 completed: Yes Anesthesia Postop Eval I Summary Anesthesia Postop Eval I Summary: Anesthesia Postop Eval I: Assessment Summary Airway patent Yes 03/04/25 17:23 REVENUE INVESTIGATOR.MEDM Spontaneous unlabored Yes 03/04/25 17:23 REVENUE INVESTIGATOR.MEDM respirations Mental status Awake,Calm 03/04/25 17:23 REVENUE INVESTIGATOR.MEDM nausea No 03/04/25 17:23 REVENUE INVESTIGATOR.MEDM Vomiting No 03/04/25 17:23 REVENUE INVESTIGATOR.MEDM Anesthesia Postop Eval I: Fluid Summary Crystalloid volume administer 1,000 03/04/25 17:23 REVENUE INVESTIGATOR.MEDM (ml) Colloids volume administered ( ml) Blood Product volume administered (ml) Total IV fluid infused 1,000 03/04/25 17:23 REVENUE INVESTIGATOR.MEDM Anesthesia Postop Eval I: Summary Notes Anesthesia Complication No 03/04/25 17:23 REVENUE INVESTIGATOR.MEDM Anesthesia Complication Comment: Post-operative progress note Anesthesia: Postop Eval II Evaluation Mental status: Awake and Calm Pain Level: 1 nausea: No Vomiting: No Complications Anesthesia Complication: No
--- NOTE | 2025-03-04 17:34 | PCM.POSTANE2 ---
Anesthesia Postop Eval I Sum Postop Eval Completion status Anesthesia document: Postop Eval 1 completed: Yes Anesthesia Postop Eval I Summary Anesthesia Postop Eval I Summary: Anesthesia Postop Eval I: Assessment Summary Airway patent Yes 03/04/25 17:23 COMPOUNDING TECHNICIAN.MEDM Spontaneous unlabored Yes 03/04/25 17:23 COMPOUNDING TECHNICIAN.MEDM respirations Mental status Awake,Calm 03/04/25 17:23 COMPOUNDING TECHNICIAN.MEDM nausea No 03/04/25 17:23 COMPOUNDING TECHNICIAN.MEDM Vomiting No 03/04/25 17:23 COMPOUNDING TECHNICIAN.MEDM Anesthesia Postop Eval I: Fluid Summary Crystalloid volume administer 1,000 03/04/25 17:23 COMPOUNDING TECHNICIAN.MEDM (ml) Colloids volume administered ( ml) Blood Product volume administered (ml) Total IV fluid infused 1,000 03/04/25 17:23 COMPOUNDING TECHNICIAN.MEDM Anesthesia Postop Eval I: Summary Notes Anesthesia Complication No 03/04/25 17:23 COMPOUNDING TECHNICIAN.MEDM Anesthesia Complication Comment: Post-operative progress note Anesthesia: Postop Eval II Evaluation Mental status: Awake and Calm Pain Level: 1 nausea: No Vomiting: No Complications Anesthesia Complication: No
[2025-03-05 03:42] VITALS: BP 118/71; PULSE 62; RESP 16; TEMP 36.6; O2SAT 100
[2025-03-05 06:06] LABS: Hematocrit 35.7 % (37-47); Hemoglobin 11.7 g/dL (12.0-15.0); Mean Corp Hgb Conc 32.8 g/dL (32-36); Mean Corpuscular Volume 84.8 fL (81-99); Mean Platelet Vol. 9.4 fl (6.2-12.0); Platelet Count 385 K/mm3 (150-450); RBC Distribution Width CV 13.5 % (11.6-14.6); RBC Distribution Width SD 42.0 fl (35.1-43.9); Red Blood Count 4.21 M/mm3 (4.2-5.4); White Blood Count 12.3 K/mm3 (4.4-11.0)
[2025-03-05 07:01] VITALS: O2SAT 98
[2025-03-05 07:03] LABS: Anion Gap 8 (5-15); BUN 5 mg/dL (4-19); BUN/Creat Ratio 11.6 RATIO (10-20); Calcium,Total 9.1 mg/dL (7.6-11.0); Carbon Dioxide 26.5 mmol/L (21.0-32.0); Chloride 104 mmol/L (98-108); Estimated Creatinine Clearance 185.51 ml/min (50-250); Glucose 114 mg/dL (70-99); Potassium 3.7 mmol/L (3.3-5.1)
[2025-03-05 09:58] VITALS: BP 151/81; PULSE 68; RESP 16; TEMP 36.4; O2SAT 100
[2025-03-05 12:25] LABS: Hematocrit 37.5 % (37-47); Hemoglobin 12.0 g/dL (12.0-15.0); Immature Granulocytes Count 0.040 X10^3/uL (0.0-0.0); Mean Corp Hgb Conc 32.0 g/dL (32-36); Mean Corpuscular Volume 86.0 fL (81-99); Mean Platelet Vol. 9.4 fl (6.2-12.0); NRBC Flagged by Analyzer 0 % (0-5); Platelet Count 401 K/mm3 (150-450); RBC Distribution Width CV 13.6 % (11.6-14.6); RBC Distribution Width SD 42.8 fl (35.1-43.9); Red Blood Count 4.36 M/mm3 (4.2-5.4); White Blood Count 11.1 K/mm3 (4.4-11.0)
--- NOTE | 2025-03-05 12:41 | PCM.PN.OB ---
Objective Data Objective Data Vital Signs: Vital Signs Temp Pulse Resp BP Pulse Ox O2 Del Method O2 Flow Rate 97.5 F L 68 16 151/81 H 100 Room Air 2 03/05/25 09:58 03/05/25 09:58 03/05/25 09:58 03/05/25 09:58 03/05/25 09:58 03/05/25 09:58 03/04/25 20:16 Oxygen Flow Rate (L/min) 2 Oxygen Delivery Method Room Air Weight: 216 lb 0.848 oz Body Mass Index (BMI) 36.8 Intake & Output: Intake and Output for Last 24 Hours 03/03/25 03/04/25 03/05/25 23:59 23:59 23:59 Intake Total 1222 / 1222 Output Total 120 / 120 Balance 1102 / 1102 Lab / Micro Data 03/05/25 12:16 03/05/25 05:51 Labs: Laboratory Results - last 24 hr 03/05/25 05:51: WBC 12.3 H, RBC 4.21, Hgb 11.7 L, Hct 35.7 L, MCV 84.8, MCH 27.8, MCHC 32.8, RDW Std Deviation 42.0, RDW Coeff of Jo-Ann 13.5, Plt Count 385, MPV 9.4, Sodium 139, Potassium 3.7, Chloride 104, Carbon Dioxide 26.5, Anion Gap 8, BUN 5, Creatinine 0.44 L, Estim Creat Clear Calc 185.51, Est GFR (MDRD) Non-Af 122, BUN/Creatinine Ratio 11.6, Glucose 114 H, Calcium 9.1 03/05/25 12:16: WBC 11.1 H, RBC 4.36, Hgb 12.0, Hct 37.5, MCV 86.0, MCH 27.5, MCHC 32.0, RDW Std Deviation 42.8, RDW Coeff of Jo-Ann 13.6, Plt Count 401, MPV 9.4, Immature Gran % (Auto) 0.400, Neut % (Auto) 77.3 H, Lymph % (Auto) 13.2 L, [place] % (Auto) 8.6, Eos % (Auto) 0.2, Baso % (Auto) 0.3, Absolute Neuts (auto) 8.6 H, Absolute Lymphs (auto) 1.46, Nucleated RBC % 0 ROS Constitutional Constitutional: Denies chills, fatigue, fever(s), poor appetite or weakness Eyes Eyes: Denies blurry vision, change in vision, seeing flashes or spots in vision ENT HEENT: Denies dizziness, headache(s), loss taste/smell or sore throat Cardiovascular Cardiovascular: Denies chest pain, dizziness, dyspnea, irregular heart rhythm, palpitations or rapid heart rate Respiratory/Chest Respiratory/Chest: Denies chest tightness, cough, dyspnea or breast pain Gastrointestinal Gastrointestinal: Denies vomiting Genitourinary Genitourinary: Denies dysuria or flank pain Musculoskeletal Musculoskeletal: Denies difficulty walking, joint pain, limited range of motion or numbness Psychiatric Psychiatric: Denies anxiety, behavioral changes, change in appetite, confusion, depression or suicidal thoughts Physical Exam Const alert, oriented x3 and no apparent distress General Appearance: cooperative and comfortable Resp normal respiratory effort Cardio regular rate GI Palpation: soft Narrative: abdomen soft, incision are clean, dry, and intact. Back/Spine no CVA tenderness and thoraco-lumbar ROM normal Extremity normal to inspection, no clubbing, cyanosis or edema, no calf tenderness and no pedal edema Psych mental status grossly normal, thought process normal, cooperative, affect normal, speech normal, activity/motor behavior normal, denies homicidal ideation and denies suicidal ideation Assessment & Plan (1) Status post laparoscopy: (2) Endometriosis determined by laparoscopy: PLAN: Plan patient is appropriately tender in her abdomen, hg stable from over night and this morning. ok to discharge to home. recommend 2 week follow up appt.
--- NOTE | 2025-03-05 12:54 | NURSING ---
Pt admitted to taking own supply of propranolol this am. This nurse educated pt on hospital policy and safety reasons for only taking meds on JUL. Will notify
[2025-03-05 14:22] VITALS: BP 149/77; PULSE 76; RESP 18; TEMP 36.7; O2SAT 100
== END 2025-03-05 16:01 | disposition home or self-care (01) ==
LOC: SDC 03-05 08:28 → MS3 03-05 13:29
PROVIDERS: Anesthesiology; Admitting Provider Obstetrics & Gynecology; PCP Family Medicine; Referring Provider Obstetrics & Gynecology; Visit Provider Obstetrics & Gynecology
PROC: (CPT 58661; principal; 2025-03-04 13:00)
PROC: 0UDB8ZZ Extraction of Endometrium, Via Natural or Artificial Opening Endoscopic (ICD-10-PCS; CPT 58558; 2025-03-04 13:00)
DX: N70.11 Chronic salpingitis (principal); N92.0 Excessive and frequent menstruation with regular cycle; I10 Essential (primary) hypertension; Z87.891 Personal history of nicotine dependence; N83.201 Unspecified ovarian cyst, right side; N80.103 Endometriosis of bilateral ovaries, unspecified depth; N83.8 Other noninflammatory disorders of ovary, fallopian tube and broad ligament; M48.02 Spinal stenosis, cervical region; N88.2 Stricture and stenosis of cervix uteri; Z87.42 Personal history of other diseases of the female genital tract
CPT/HCPCS: 58661; 58662; 58555; 00840; 36415; 80048; 81025; 85025; 85027; 86850; 86900; 86901; 88302; 88305; 88342; 94668; 99221; G0378; J2405

== ENCOUNTER → 2025-04-08 | Outpatient (CLI) | payer OTHER, SELFPAY ==
[2025-04-08 17:02] LABS: Hematocrit 42.6 % (37-47); Hemoglobin 13.3 g/dL (12.0-15.0); Immature Granulocytes Count 0.030 X10^3/uL (0.0-0.0); Mean Corp Hgb Conc 31.2 g/dL (32-36); Mean Corpuscular Volume 86.9 fL (81-99); Mean Platelet Vol. 10.0 fl (6.2-12.0); NRBC Flagged by Analyzer 0 % (0-5); Platelet Count 359 K/mm3 (150-450); RBC Distribution Width CV 13.8 % (11.6-14.6); RBC Distribution Width SD 44.6 fl (35.1-43.9); Red Blood Count 4.90 M/mm3 (4.2-5.4); White Blood Count 7.8 K/mm3 (4.4-11.0)
[2025-04-08 17:43] LABS: AST(SGOT) 17 U/L (<=31); Alanine Aminotransfer ALT/SGPT 25 U/L (<=34); Albumin, Serum 4.2 g/dL (3.5-5.0); Alkaline Phosphatase 72 U/L (35-104); Anion Gap 9 (5-15); BUN 14 mg/dL (4-19); BUN/Creat Ratio 21.9 RATIO (10-20); Calcium,Total 9.6 mg/dL (7.6-11.0); Carbon Dioxide 27.9 mmol/L (21.0-32.0); Chloride 104 mmol/L (98-108); Globulin 3.0 g/dL (2.2-4.2); Glucose 93 mg/dL (70-99); Potassium 3.9 mmol/L (3.3-5.1)
== END | disposition home or self-care (01) ==
LOC: LAB 16:28
PROVIDERS: PCP Family Medicine; Referring Provider Obstetrics & Gynecology; Visit Provider Obstetrics & Gynecology
DX: I10 Essential (primary) hypertension (principal); R23.3 Spontaneous ecchymoses; K06.8 Other specified disorders of gingiva and edentulous alveolar ridge
CPT/HCPCS: 36415; 80053; 85025